=== PATIENT | male | born 1955 | race Caucasian/White ===

== ENCOUNTER → 2021-05-26 13:51 | Outpatient (BNVA) | payer MEDICARE, MEDICAID, SELFPAY | PROVIDERS: PCP Internal Medicine; Visit Provider Psychiatry & Neurology Neurology | DX: G95.9 Disease of spinal cord, unspecified (principal); G25.5 Other chorea; R26.9 Unspecified abnormalities of gait and mobility | CPT/HCPCS: 99212 ==

== ENCOUNTER → 2021-10-30 11:32 | Outpatient (BNVA) | payer MEDICARE, MEDICAID, SELFPAY | PROVIDERS: PCP Internal Medicine; Visit Provider Nurse Practitioner Family | DX: R26.9 Unspecified abnormalities of gait and mobility (principal); G95.9 Disease of spinal cord, unspecified; G25.5 Other chorea; M19.90 Unspecified osteoarthritis, unspecified site; Z91.81 History of falling | CPT/HCPCS: 99212 ==

== ENCOUNTER → 2022-02-26 14:28 | Outpatient (BNVA) | payer MEDICARE, MEDICAID, SELFPAY | PROVIDERS: PCP Internal Medicine; Visit Provider Nurse Practitioner Family | DX: R26.9 Unspecified abnormalities of gait and mobility (principal); R25.1 Tremor, unspecified; I10 Essential (primary) hypertension; F41.8 Other specified anxiety disorders; Z91.81 History of falling | CPT/HCPCS: 99212 ==

== ENCOUNTER → 2022-07-01 14:23 | Outpatient (BNVA) | payer MEDICARE, MEDICAID, SELFPAY | PROVIDERS: PCP Internal Medicine; Visit Provider Nurse Practitioner Family | DX: G20 Parkinson's disease (principal); R26.9 Unspecified abnormalities of gait and mobility; G25.5 Other chorea; Z91.81 History of falling | CPT/HCPCS: 99212 ==

== ENCOUNTER 2022-11-03 13:35 | Outpatient (AMB) | payer MEDICARE, MEDICAID, SELFPAY ==
--- NOTE | 2022-11-03 13:54 | A.OFFVIS_ITS ---
Intake Vital Signs 11/03/22 13:59 Height 6 in BP 136/98 H Blood Pressure Location Rt brachial Position Sitting Pulse 96 Pulse Source Pulse Oximeter Pulse Oximetry (%) 98 Oxygen Delivery Method Room Air Intake Visit Reasons: 4m follow up Parkinson's - Confirmed Intake Note: Patient presents for 4 month follow up parkinson's. Patient states No issues to report today. Allergies sulfamethoxazole [From Bactrim] Adverse Reaction (Intermediate, Verified 11/03/22 14:02) Rash trimethoprim [From Bactrim] Adverse Reaction (Intermediate, Verified 11/03/22 14:02) Rash diazepam [From Valium] Adverse Reaction (Mild, Verified 11/03/22 14:02) Anxiety Medication List - Last Reconciled 11/03/22 by PHIL Bernard albuterol 90 mcg/actuation 90 mcg inhalation .q6hrs aspirin (Adult Low Dose Aspirin) 81 mg PO DAILY benztropine 0.5 mg PO DAILY cyclobenzaprine 10 mg PO BEDTIME lisinopril (Zestril) 10 mg PO BID lorazepam 0.5 - 1 mg PO PRN methylphenidate HCl 10 mg PO BID metoprolol succinate ER (Toprol XL) 25 mg PO DAILY metoprolol succinate ER mg PO mirtazapine 30 mg PO DAILY omeprazole 40 mg PO BID sertraline 100 mg PO DAILY simvastatin (Zocor) 20 mg PO BEDTIME tamsulosin 0.4 mg PO BEDTIME venlafaxine ER 0 mg PO HPI HPI Comments History of Present Illness Details 67-yr-old male presents for f/u visit. Pt denies any significant interval medical history changes. Pt reports his nurse charge rn started him on Benztropine a few weeks agp. He feels it has helped his tremor and jerking movements some. Pt's primary concerns are: His balance is more off ADL's: Ind Swallowing: Sometimes has a bit of difficulty Drooling: Rarely Orthostatic lightheadedness: Transient Constipation: Yes- manages w/ stool softener and prn miralax- tries to eat fruits and vegetables. Freezing: Denies Stiffness: Once in awhile Tremor: Off and on Falls: No falls Hallucinations: Maybe sees a shadow out of the corner of his eye Memory: Can you have some brief STM lapses. 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 [facility], [facility] Medical History ADD (attention deficit disorder) Arthritis Cervical myelopathy Chorea Depression HTN (hypertension) Kidney disease Social anxiety disorder Surgical History History of back surgery Family History Father HTN (hypertension) Mother Cancer Social History Alcohol intake: never Patient Tobacco Use Status: Never used Tobacco Review of Systems Const All systems reviewed & are unremarkable except as noted in HPI and below Physical Exam Vital Signs: Last Vital Signs Pulse 96 11/03/22 13:59 BP 136/98 H 11/03/22 13:59 Pulse Ox 98 11/03/22 13:59 Oxygen Delivery Method Room Air 11/03/22 13:59 Const General: cooperative and no acute distress Resp Effort & Inspection: normal respiratory effort and able to speak in complete sentences Neuro Other: Expression: Decreased- mildly Voice: Ok Tremor: Mild BUE kinetic tremor, no chorea noted today Tone: Mild LUE tone Dyskinesia: None FFM: Bradykinesia- mild- more so on left Foot taps: Bradykinesia- mild- more so on left Gait: Stands ok, short steps, mildy antalgic gait, steady Psych: Pleasant affect. General: patient oriented x3 Assessment & Plan Assessment & Plan (1) Parkinson's disease: Comment: DaTscan: positive for a progressive neurodegenerative d/o. Mild decreased uptake in the left caudate nucleus and bilateral putamen, left worse than right. 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 Will forward my note to Fani at [facility], as pt is unsure if he informed her about his PD dx. Pt advised to start PD BIG program. f/u in 6 months or sooner prn. Orders: Orders PT Evaluation and Treatment Today G20 - Parkinson's disease, G25.5 - Other chorea, R26.9 - Unspecified abnormalities of gait and mobility, W19.XXXA - Unspecified fall, initial encounter Medications: New quetiapine 200 mg PO BEDTIME Coding Level of Care Code Est Pt Level 4 (20521) Diagnoses Parkinson's disease G20 Gait abnormality R26.9 Chorea G25.5
[2022-11-03 13:59] VITALS: BP 136/98; PULSE 96; O2SAT 98
== END 2022-11-03 14:42 | disposition home or self-care (01) ==
PROVIDERS: Visit Provider Nurse Practitioner Family
DX: G20 Parkinson's disease (principal); R26.9 Unspecified abnormalities of gait and mobility; G25.5 Other chorea
CPT/HCPCS: 99214

== ENCOUNTER → 2022-11-03 13:35 | Outpatient (BNVA) | payer MEDICARE, MEDICAID, SELFPAY | PROVIDERS: Visit Provider Nurse Practitioner Family | DX: G20 Parkinson's disease (principal); G25.5 Other chorea; Z79.899 Other long term (current) drug therapy | CPT/HCPCS: 99212 ==

== ENCOUNTER 2023-05-10 11:23 | Outpatient (AMB) | payer MEDICARE, MEDICAID, SELFPAY ==
[2023-05-10 11:28] VITALS: BP 140/88; BMI 23.2
--- NOTE | 2023-05-10 11:28 | MHC.OFFVIS ---
Intake Vital Signs 05/10/23 11:28 Height 5 ft 6 in Weight 144 lb BMI 23.2 BP 140/88 H Blood Pressure Location Rt brachial Position Sitting Intake Visit Reasons: 6m follow up Parkinson's - confirmed Intake Note: patient presents for 6 month follow up. Isabel been the same since I last saw her. Allergies sulfamethoxazole [From Bactrim] Adverse Reaction (Intermediate, Verified 05/10/23 11:32) Rash trimethoprim [From Bactrim] Adverse Reaction (Intermediate, Verified 05/10/23 11:32) Rash diazepam [From Valium] Adverse Reaction (Mild, Verified 05/10/23 11:32) Anxiety Medication List - Last Reconciled 05/10/23 by PHIL Bernard albuterol 90 mcg/actuation 90 mcg inhalation .q6hrs aspirin (Adult Low Dose Aspirin) 81 mg PO DAILY benztropine 0.5 mg PO DAILY cyclobenzaprine 10 mg PO BEDTIME lisinopril (Zestril) 10 mg PO BID lorazepam 0.5 - 1 mg PO PRN methylphenidate HCl 10 mg PO BID metoprolol succinate ER (Toprol XL) 25 mg PO DAILY metoprolol succinate ER mg PO mirtazapine 30 mg PO DAILY omeprazole 40 mg PO BID quetiapine 200 mg PO BEDTIME quetiapine 50 mg PO BEDTIME sertraline 100 mg PO DAILY simvastatin (Zocor) 20 mg PO BEDTIME tamsulosin 0.4 mg PO BEDTIME valbenazine (Ingrezza) 40 mg PO DAILY venlafaxine ER 0 mg PO HPI HPI Comments History of Present Illness Details 68-yr-old male presents for f/u visit. Pt denies any significant interval medical history changes. Pt's current PD medication regimen: None. His benzotropine was changed to Ingrezza by psych. Pt's primary concerns are: He would like to revisit his SHANIKA dx- states had a CPAP machine yrs ago, but it broke about 10 yrs ago. He endorses snoring, fatigue- no naps but is on methylphenidate, and apneas. ADL's: Ind Swallowing: Sometimes has a bit of difficulty Drooling: Rarely Orthostatic lightheadedness: Transient Constipation: Yes- manages w/ stool softener and prn miralax- tries to eat fruits and vegetables. Freezing: Denies Stiffness: Noticing stiffness Tremor: A bit better Dyskinesia/chorea: Denies Falls: No interval falls Hallucinations: Very rarely- may see a shadow out of the corner of his eye Mood: alright , can be anxious Memory: Can you have some brief STM lapses. 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 [facility] Medical History ADD (attention deficit disorder) Arthritis Cervical myelopathy Chorea Depression HTN (hypertension) Kidney disease Social anxiety disorder Surgical History History of back surgery Family History Father HTN (hypertension) Mother Cancer Social History Alcohol intake: never Patient Tobacco Use Status: Never used Tobacco Review of Systems Const All systems reviewed & are unremarkable except as noted in HPI and below Physical Exam Vital Signs: Last Vital Signs BP 140/88 H 05/10/23 11:28 BMI result Body Mass Index 23.2 Const General: cooperative and no acute distress Resp Effort & Inspection: normal respiratory effort and able to speak in complete sentences Neuro Other: General: patient oriented x3 Expression: Decreased Voice: Ok Tremor: Mild BUE kinetic tremor, no chorea noted today Tone: Mild LUE tone Dyskinesia: None FFM: Bradykinesia- more so on left Foot taps: Bradykinesia- more so on left Gait: Stands ok, decreased arm swing, short steps, mildly antalgic gait, steady Psych: Pleasant affect. Assessment & Plan Assessment & Plan (1) Snoring: Code(s): R06.83 - Snoring (2) Witnessed apneic spells: Code(s): R06.81 - Apnea, not elsewhere classified (3) Fatigue: Code(s): R53.83 - Other fatigue (4) Parkinson's disease: Comment: DaTscan: positive for a progressive neurodegenerative d/o. Mild decreased uptake in the left caudate nucleus and bilateral putamen, left worse than right. Code(s): G20 - Parkinson's disease (5) History of obstructive sleep apnea: Code(s): Z86.69 - Personal history of other diseases of the nervous system and sense organs Plan Pt advsied to undergo in-lab PSG to assess status of sleep apnea. Pt would like to try dopaminergic tx to help w/ stiffness. Trial CD-LD 25-100mg 1 tab bid. Monitor Ingrezza effect- as this may exacerbate PD s/s. Will refer pt again to PD BIG program. f/u in 3-4 months or sooner prn. Orders: Orders RT PSG in-lab sleep study Today G20 - Parkinson's disease, R06.81 - Apnea, not elsewhere classified, R06.83 - Snoring, R53.83 - Other fatigue, Z86.69 - Personal history of other diseases of the nervous system and sense organs Medications: New carbidopa-levodopa 25-100 mg take w/ a cracker 30 minutes before breakfast and dinner, 1 tab PO BID 30 days 60 tabs 3RF valbenazine (Ingrezza) 80 mg PO DAILY Coding Level of Care Code Est Pt Level 4 (62321) Diagnoses Snoring R06.83 Witnessed apneic spells R06.81 Fatigue R53.83 Parkinson's disease G20 History of obstructive sleep apnea Z86.69
== END 2023-05-10 12:28 | disposition home or self-care (01) ==
PROVIDERS: PCP Internal Medicine; Visit Provider Nurse Practitioner Family
DX: G20.A1 Parkinson's disease without dyskinesia, without mention of fluctuations (principal); R06.83 Snoring; R06.81 Apnea, not elsewhere classified; R53.83 Other fatigue; Z86.69 Personal history of other diseases of the nervous system and sense organs
CPT/HCPCS: 99214

== ENCOUNTER → 2023-05-10 11:23 | Outpatient (BNVA) | payer MEDICARE, MEDICAID, SELFPAY | PROVIDERS: PCP Internal Medicine; Visit Provider Nurse Practitioner Family | DX: G20.A1 Parkinson's disease without dyskinesia, without mention of fluctuations (principal); R06.83 Snoring; R06.81 Apnea, not elsewhere classified; R53.83 Other fatigue; Z86.69 Personal history of other diseases of the nervous system and sense organs | CPT/HCPCS: 99212 ==

== ENCOUNTER 2023-11-17 08:29 | Outpatient (AMB) | payer MEDICARE, MEDICAID, SELFPAY ==
[2023-11-17 08:41] VITALS: BP 146/84; PULSE 84; O2SAT 98; BMI 22.9
--- NOTE | 2023-11-17 08:41 | A.OFFVIS_ITS ---
Vital Signs 11/17/23 08:41 Height 5 ft 6 in Weight 142 lb BMI 22.9 BP 146/84 H Blood Pressure Location Rt brachial Position Sitting Pulse 84 Pulse Source Pulse Oximeter Pulse Oximetry (%) 98 Oxygen Delivery Method Room Air Intake Visit Reasons: 6m follow up Parkinson's Intake Note: Patient presents for 6 month follow up parkinsons Allergies sulfamethoxazole [From Bactrim] Adverse Reaction (Intermediate, Verified 05/10/23 11:32) Rash trimethoprim [From Bactrim] Adverse Reaction (Intermediate, Verified 05/10/23 11:32) Rash diazepam [From Valium] Adverse Reaction (Mild, Verified 05/10/23 11:32) Anxiety Medication List - Last Reconciled 11/17/23 by PHIL Bernard albuterol 90 mcg/actuation 90 mcg inhalation .q6hrs aspirin (Adult Low Dose Aspirin) 81 mg PO DAILY benztropine 0.5 mg PO DAILY carbidopa-levodopa 25-100 mg 1 tab PO BID 30 days cyclobenzaprine 10 mg PO BEDTIME lisinopril (Zestril) 10 mg PO BID lorazepam 0.5 - 1 mg PO PRN methylphenidate HCl 10 mg PO BID metoprolol succinate ER (Toprol XL) 25 mg PO DAILY metoprolol succinate ER mg PO mirtazapine 30 mg PO DAILY omeprazole 40 mg PO BID quetiapine 200 mg PO BEDTIME quetiapine 50 mg PO BEDTIME sertraline 100 mg PO DAILY simvastatin (Zocor) 20 mg PO BEDTIME tamsulosin 0.4 mg PO BEDTIME valbenazine (Ingrezza) 80 mg PO DAILY venlafaxine ER 0 mg PO HPI Comments Details: 68-yr-old male presents for f/u visit. Pt denies any significant interval medical history changes. Pt's current PD medication regimen: CD-LD 25-100mg 1 tab bid. The Ingrezza was stopped as it was not helping his tremor. His sleep study is scheduled for 11/27/23- to re-assess SHANIKA dx- states had a CPAP machine yrs ago, but it broke about 10 yrs ago. He endorses snoring, fatigue- no naps but is on methylphenidate, and apneas. ADL's: Ind. Lives w/ his in an apartment complex. Swallowing: Sometimes has a bit of difficulty Drooling: Rarely Orthostatic lightheadedness: Transient Constipation: Yes- manages w/ stool softener and prn miralax- tries to eat fruits and vegetables. Urinary symptoms: denies Freezing: Denies Stiffness: Stiffness- stable. Tremor: Stable. Dyskinesia/chorea: Denies Falls: No interval falls Hallucinations: Very rarely- may see a shadow out of the corner of his eye Mood: ok Memory: Can you have some brief STM lapses- as good a sit's going to be . Sleep: Sleeps on and off- nocturia. Exercise: He is exercising- goes to the gym once in a while. He is no longer working. [facility] Medical History (Updated 11/17/23 @ 09:33 by PHIL Bernard) Parkinson's disease Cervical myelopathy Chorea Social anxiety disorder ADD (attention deficit disorder) Kidney disease HTN (hypertension) Depression Arthritis Surgical History History of back surgery Family History Father HTN (hypertension) Mother Cancer Social History Alcohol intake: never Patient Tobacco Use Status: Never used Tobacco Review of Systems Const All systems reviewed & are unremarkable except as noted in HPI and below Physical Exam Vital Signs: BMI result Body Mass Index 22.9 Const General: cooperative and no acute distress Resp Effort & Inspection: normal respiratory effort and able to speak in complete sentences Neuro Other: General: patient oriented x3. Facial asymmetry- have not previously appreciated. Expression: Decreased. Voice: Ok Tremor: Mild BUE kinetic tremor, no chorea noted today. Prone to tapping RLE. Tone: Mild BUE tone, L > R Dyskinesia: None FFM: Bradykinesia- more so on left Foot taps: Bradykinesia- more so on left Gait: Stands ok, decreased arm swing, short steps, knees bent, short steps w/ low floor clearance, steady Psych: Pleasant affect. General: deep tendon reflexes 2+ bilaterally Motor exam (neuro): 5/5 motor strength present throughout Assessment & Plan Assessment & Plan (1) Parkinson's disease without dyskinesia: Comment: DaTscan: positive for a progressive neurodegenerative d/o. Mild decreased uptake in the left caudate nucleus and bilateral putamen, left worse than right. Code(s): G20.A1 - Parkinson's disease without dyskinesia, without mention of fluctuations Category: Medical (2) History of obstructive sleep apnea: Code(s): Z86.69 - Personal history of other diseases of the nervous system and sense organs Category: Medical (3) Gait abnormality: Code(s): R26.9 - Unspecified abnormalities of gait and mobility Category: Medical Plan Pt advised to undergo brain MRI wo to assess for secondary etiologies of facial asymmetry. In-lab PSG to assess status of sleep apnea- as scheduled. Continue CD-LD 25-100mg 1 tab bid. Pt has stopped Ingrezza- ineffective. Pt to bring in updated med list at f/u. Discussed importance of regular physical activity for management of PD s/s, Will refer to out-pt PT for gait training etc. Order slip given for [facility].BIG program. f/u in 6 months or sooner prn. Orders: Orders MR head/brain wo con Today G20.A1 - Parkinson's disease without dyskinesia, without mention of fluctuations, Q67.0 - Congenital facial asymmetry, R25.1 - Tremor, unspecified, R26.9 - Unspecified abnormalities of gait and mobility Coding Level of Care Code Est Pt Level 4 (12451) Diagnoses Parkinson's disease without dyskinesia G20.A1 History of obstructive sleep apnea Z86.69 Gait abnormality R26.9
== END 2023-11-17 09:31 | disposition home or self-care (01) ==
PROVIDERS: PCP Internal Medicine; Visit Provider Nurse Practitioner Family
DX: G20.A1 Parkinson's disease without dyskinesia, without mention of fluctuations (principal); Z86.69 Personal history of other diseases of the nervous system and sense organs; R26.9 Unspecified abnormalities of gait and mobility
CPT/HCPCS: 99214

== ENCOUNTER → 2023-11-17 08:29 | Outpatient (BNVA) | payer MEDICARE, MEDICAID, SELFPAY | PROVIDERS: PCP Internal Medicine; Visit Provider Nurse Practitioner Family | DX: G20.A1 Parkinson's disease without dyskinesia, without mention of fluctuations (principal); G47.33 Obstructive sleep apnea (adult) (pediatric); Q67.0 Congenital facial asymmetry; R26.9 Unspecified abnormalities of gait and mobility; Z99.89 Dependence on other enabling machines and devices; Z86.69 Personal history of other diseases of the nervous system and sense organs | CPT/HCPCS: 99212 ==

== ENCOUNTER 2024-01-08 11:15 | Outpatient (REF) | payer MEDICARE, MEDICAID, SELFPAY ==
--- NOTE | ~2024-01-08 | MR_ITS ---
EXAMINATION: MR BRAIN WITHOUT CONTRAST CLINICAL INFORMATION: Congenital facial asymmetry. COMPARISON: None available. TECHNIQUE: MRI of the brain was obtained using routine sequences without contrast. FINDINGS: No focal restricted diffusion is demonstrated to suggest acute or subacute cerebral ischemia. No evidence of acute or chronic hemorrhagic products on heme-sensitive imaging. Scattered and partially confluent periventricular, deep white matter, and brainstem T2 FLAIR hyperintensities consistent with mild to moderate underlying microangiopathy. Proportional prominence of the ventricles and sulcal spaces without evidence of obstructive hydrocephalus. No abnormal mass effect. No midline shift. Normal appearance of the pituitary gland. Normal positioning of the cerebellar tonsils. Normal arterial and venous vascular flow voids are present. Normal, homogeneous marrow signal. Moderate degenerative spondyloarthropathy of the visualized upper cervical spine. Mild mucosal thickening of the paranasal sinuses. No signal abnormalities within the mastoids. MR/MR head/brain wo con IMPRESSION: 1. No acute intracranial abnormalities. 2. Mild to moderate underlying microangiopathy and generalized cerebral volume loss. Electronically signed by: Bimal Gusman DO 02/16/2024 05:58 AM SAULO
== END 2024-01-08 11:16 | disposition home or self-care (01) ==
LOC: HO.MRI 11:15
PROVIDERS: PCP Internal Medicine; Visit Provider Nurse Practitioner Family
DX: Q67.0 Congenital facial asymmetry (principal); R26.9 Unspecified abnormalities of gait and mobility; G20.A1 Parkinson's disease without dyskinesia, without mention of fluctuations
CPT/HCPCS: 70551

== ENCOUNTER 2024-05-29 09:01 | Outpatient (AMB) | payer MEDICARE, MEDICAID, SELFPAY ==
--- NOTE | 2024-05-29 09:01 | MHC.OFFVIS ---
Vital Signs 05/29/24 09:03 Height 5 ft 6 in Weight 141 lb BMI 22.8 BP 130/80 Blood Pressure Location Rt brachial Position Sitting Pulse 83 Pulse Source Pulse Oximeter Pulse Oximetry (%) 98 Oxygen Delivery Method Room Air Intake Visit Reasons: Follow up Intake Note: Patient presents follow up Parkinson's. MRI in chart [employer] Required: No Accompanied by: Self / Same As Patient Allergies sulfamethoxazole [From Bactrim] Adverse Reaction (Intermediate, Verified 05/29/24 09:02) Rash trimethoprim [From Bactrim] Adverse Reaction (Intermediate, Verified 05/29/24 09:02) Rash diazepam [From Valium] Adverse Reaction (Mild, Verified 05/29/24 09:02) Anxiety Medication List - Last Reconciled 05/29/24 by PHIL Bernard albuterol 90 mcg/actuation 90 mcg inhalation .q6hrs aspirin (Adult Low Dose Aspirin) 81 mg PO DAILY benztropine 0.5 mg PO DAILY carbidopa-levodopa 25-100 mg 1 tab PO BID 30 days cyclobenzaprine 10 mg PO BEDTIME lisinopril (Zestril) 10 mg PO BID lorazepam 0.5 - 1 mg PO PRN methylphenidate HCl 10 mg PO BID metoprolol succinate ER (Toprol XL) 25 mg PO DAILY metoprolol succinate ER mg PO mirtazapine 30 mg PO DAILY omeprazole 40 mg PO BID quetiapine 200 mg PO BEDTIME quetiapine 50 mg PO BEDTIME sertraline 100 mg PO DAILY simvastatin (Zocor) 20 mg PO BEDTIME tamsulosin 0.4 mg PO BEDTIME venlafaxine ER 0 mg PO HPI Comments Details: 68-yr-old male presents for f/u visit. Pt denies any significant interval medical history changes. 01/08/24, Brain MRI without contrast showed: 1. No acute intracranial abnormalities. 2. Mild to moderate underlying microangiopathy and generalized cerebral volume loss. He did not complete the in-lab PSG as he was sick- previously ordered to re-assess SHANIKA dx- states had a CPAP machine yrs ago, but it broke about 10 yrs ago. He endorses snoring, apneas, fatigue- no naps but is on methylphenidate Pt's current PD medication regimen: CD-LD 25-100mg 1 tab bid. Does not notice it wearing your consult ADL's: Ind. Lives w/ his in an apartment complex. Swallowing: Sometimes has a bit of difficulty with larger bites Drooling: Rarely Orthostatic lightheadedness: Transient- very mild Constipation: Yes- manages w/ stool softener and prn miralax- tries to eat fruits and vegetables. Urinary symptoms: States stream may be slow- has prostate s/s f/b urology. Freezing: Denies Stiffness: Very little Tremor: Very little Dyskinesia/chorea: Denies Gait/Falls: No interval falls- but may skuff his foot or lose his balance at times- which is bothersome to him and his .. Hallucinations: Denies. Previously: Very rarely- may see a shadow out of the corner of his eye Mood: ok Memory: Can you have some brief STM lapses- sometimes. Asks if this is r/t PD. Sleep: Sleeps on and off at times. Exercise: He did complete PT. He is exercising at times- goes to the gym once in a while. He is no longer working. [facility] Medical History (Updated 11/17/23 @ 09:33 by PHIL Bernard) Parkinson's disease Cervical myelopathy Chorea Social anxiety disorder ADD (attention deficit disorder) Kidney disease HTN (hypertension) Depression Arthritis Surgical History History of back surgery Family History Father HTN (hypertension) Mother Cancer Social History Alcohol intake: never Patient Tobacco Use Status: Never used Tobacco Physical Exam Vital Signs: Last Vital Signs Pulse 83 05/29/24 09:03 BP 130/80 05/29/24 09:03 Pulse Ox 98 05/29/24 09:03 Oxygen Delivery Method Room Air 05/29/24 09:03 BMI result Body Mass Index 22.8 Const General: cooperative and no acute distress Resp Effort & Inspection: normal respiratory effort and able to speak in complete sentences Neuro Other: General: patient oriented x3. Facial asymmetry. Expression: Decreased expression and blink Voice: Ok Tremor: Mild BUE kinetic tremor, no chorea noted today. Did not observe any RLE tapping. Tone: Mild BUE tone, L > R Dyskinesia: None FFM: Bradykinesia- more so on left Foot taps: Bradykinesia- more so on left Gait: Stands ok, decreased arm swing knees bent, shorter steps in narrow left leg is stopping across the floor, though overall steady Psych: Pleasant affect. Assessment & Plan Assessment & Plan (1) Parkinson's disease without dyskinesia: Comment: DaTscan: positive for a progressive neurodegenerative d/o. Mild decreased uptake in the left caudate nucleus and bilateral putamen, left worse than right. Code(s): G20.A1 - Parkinson's disease without dyskinesia, without mention of fluctuations Category: Medical (2) History of obstructive sleep apnea: Code(s): Z86.69 - Personal history of other diseases of the nervous system and sense organs Category: Medical (3) Gait abnormality: Code(s): R26.9 - Unspecified abnormalities of gait and mobility Category: Medical Plan Reviewed brain MRI wo- Mild to moderate underlying microangiopathy and generalized cerebral volume loss. BP normotensive today. Reviewed recent labs through PCP/Leah panel: Lipid panel WNL. Patient encouraged to continue to work with his care team to maintain an optimal blood pressure, cholesterol and glucose control. Patient reports nephrology has asked him to hold low-dose aspirin. Patient encouraged to increase regular physical activity, can engage in regular social in cognitive stimulating activities. Pt again advised to undergo In-lab PSG to assess status of sleep apnea. Increase CD-LD 25-100mg from 1 tab BID to 1 tab TID- in hopes this in full use gait imbalance. Previous tx's- Ingrezza- ineffective. Cogentin- ineffective. f/u in 6 months or sooner prn. Orders: Orders RT PSG in-lab sleep study Today G20.A1 - Parkinson's disease without dyskinesia, without mention of fluctuations, R06.81 - Apnea, not elsewhere classified, R06.83 - Snoring, R53.83 - Other fatigue, Z86.69 - Personal history of other diseases of the nervous system and sense organs Medications: New sertraline (Zoloft) 100 mg PO DAILY amlodipine 5 mg PO DAILY prazosin 1 mg PO BEDTIME Changed From quetiapine 200 mg PO BEDTIME To quetiapine 350 mg PO BEDTIME From carbidopa-levodopa 25-100 mg take w/ a cracker 30 minutes before breakfast and dinner, 1 tab PO BID 30 days 60 tabs 6RF To carbidopa-levodopa 25-100 mg take w/ a cracker 30 minutes before breakfast, lunch, and dinner, 1 tab PO TID 30 days 90 tabs 6RF From aspirin (Adult Low Dose Aspirin) 81 mg PO DAILY To aspirin (Adult Low Dose Aspirin) Patient states this is on hold per nephrology 81 mg PO DAILY Coding Level of Care Code Est Pt Level 4 (28363) Diagnoses Parkinson's disease without dyskinesia G20.A1 History of obstructive sleep apnea Z86.69 Gait abnormality R26.9
[2024-05-29 09:03] VITALS: BP 130/80; PULSE 83; O2SAT 98; BMI 22.8
== END 2024-05-29 10:03 | disposition home or self-care (01) ==
LOC: HO.HSMS 09:02
PROVIDERS: PCP Internal Medicine; Visit Provider Nurse Practitioner Family
DX: G20.A1 Parkinson's disease without dyskinesia, without mention of fluctuations (principal); Z86.69 Personal history of other diseases of the nervous system and sense organs; R26.9 Unspecified abnormalities of gait and mobility
CPT/HCPCS: 99214

== ENCOUNTER → 2024-05-29 09:01 | Outpatient (BNVA) | payer MEDICARE, MEDICAID, SELFPAY | PROVIDERS: PCP Internal Medicine; Visit Provider Nurse Practitioner Family | DX: G20.A1 Parkinson's disease without dyskinesia, without mention of fluctuations (principal); G47.33 Obstructive sleep apnea (adult) (pediatric); R26.9 Unspecified abnormalities of gait and mobility; R06.83 Snoring; Z86.69 Personal history of other diseases of the nervous system and sense organs | CPT/HCPCS: 99212 ==

== ENCOUNTER 2024-11-29 12:53 | Outpatient (AMB) | payer MEDICARE, MEDICAID, SELFPAY ==
--- NOTE | 2024-11-29 13:06 | A.OFFVIS_ITS ---
Vital Signs 11/29/24 13:09 Height 5 ft 6 in Weight 146 lb BMI 23.6 BP 110/80 Blood Pressure Location Lt brachial Position Sitting Pulse 86 Pulse Source Pulse Oximeter Pulse Oximetry (%) 98 Oxygen Delivery Method Room Air Intake Visit Reasons: 6 mo f/u Intake Note: Patient presents follow up Parkinson's. 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 Accompanied by: Self / Same As Patient Allergies sulfamethoxazole (From Bactrim) Adverse Reaction (Intermediate, Verified 11/29/24 13:09) Rash trimethoprim (From Bactrim) Adverse Reaction (Intermediate, Verified 11/29/24 13:09) Rash diazepam (From Valium) Adverse Reaction (Mild, Verified 11/29/24 13:09) Anxiety Medication List - Last Reconciled 11/29/24 by PHIL Bernard albuterol 90 mcg/actuation 90 mcg inhalation .q6hrs amlodipine 5 mg PO DAILY aspirin (Adult Low Dose Aspirin) 81 mg PO DAILY carbidopa-levodopa 25-100 mg 1 tab PO TID 30 days cyclobenzaprine 10 mg PO BEDTIME lisinopril (Zestril) 10 mg PO BID lorazepam 0.5 - 1 mg PO PRN methylphenidate HCl 10 mg PO BID metoprolol succinate ER (Toprol XL) 25 mg PO DAILY metoprolol succinate ER mg PO omeprazole 40 mg PO BID prazosin 1 mg PO BEDTIME quetiapine 350 mg PO BEDTIME sertraline 100 mg PO DAILY simvastatin (Zocor) 20 mg PO BEDTIME tamsulosin 0.4 mg PO BEDTIME HPI Comments Details: 69-yr-old male presents for f/u visit, Parkisnon's and chorea. Pt denies any significant interval medical history changes. His primary concerns today is noticing increased STM lapses, such as forgetting who an actor is or forgetting what he just watched. He may be multitasking or thinking over other things. He has not yet had repeat sleep study. Pt's current PD medication regimen: CD-LD 25-100mg 1 tab bid. Does notice CD-LD wearing off before next dose. ADL's: Ind. Lives w/ his in an apartment complex. Swallowing: Sometimes has difficulty swallowing solid foods. Also endorses GERD. Drooling: Rarely Orthostatic lightheadedness: Transient- very mild Constipation: Yes- manages w/ stool softener and prn miralax- tries to eat fruits and vegetables. Urinary symptoms: States stream may be slow- stopped tamsulosin d/t caused low BP/OH s/s, has h/o BPH s/s f/b urology. Gait: May skuff his foot or lose his balance at times- Freezing: Denies Stiffness: Very little Tremor: once in a while Dyskinesia/chorea: Denies Gait/Falls: Denies interval falls Hallucinations: Denies. Previously: Very rarely- may see a shadow out of the corner of his eye Mood: depression and anxiety, f/b psychiatrist at [facility] Memory: as above Sleep: Sleeps ok on and off at times. Can be tired during the day. He endorses snoring, apneas, fatigue- no naps but is on methylphenidate Exercise: He previously completed PT. He is exercising at times- goes to the gym once in a while. Previous work-up: 01/08/24, Brain MRI without contrast showed: 1. No acute intracranial abnormalities. 2. Mild to moderate underlying microangiopathy and generalized cerebral volume loss. [facility] Medical History (Updated 11/29/24 @ 14:03 by PHIL Bernard) Parkinson's disease Cervical myelopathy Chorea Social anxiety disorder ADD (attention deficit disorder) Kidney disease HTN (hypertension) Depression Arthritis Surgical History History of back surgery Family History Father HTN (hypertension) Mother Cancer Social History Alcohol intake: never Patient Tobacco Use Status: Never used Tobacco Physical Exam Vital Signs: Last Vital Signs Pulse 86 11/29/24 13:09 BP 110/80 11/29/24 13:09 Pulse Ox 98 11/29/24 13:09 Oxygen Delivery Method Room Air 11/29/24 13:09 BMI result Body Mass Index 23.6 Const General: cooperative and no acute distress Resp Effort & Inspection: normal respiratory effort and able to speak in complete sentences Neuro Other: General: patient oriented x3. Facial asymmetry. Mild bradyphrenia. Expression: Decreased expression and blink Voice: Ok Tremor: Mild BUE kinetic tremor, no chorea noted today. Mild RLE tapping. Tone: Mild BUE tone, L > R Dyskinesia: None FFM: Bradykinesia- more so on left Foot taps: Bradykinesia- more so on left Gait: Stands ok, decreased arm swing, knees bent, shorter steps though overall steady Psych: Pleasant affect. Assessment & Plan Assessment & Plan (1) Parkinson's disease without dyskinesia: Comment: DaTscan: positive for a progressive neurodegenerative d/o. Mild decreased uptake in the left caudate nucleus and bilateral putamen, left worse than right. Code(s): G20.A1 - Parkinson's disease without dyskinesia, without mention of fluctuations Category: Medical Qualifiers: Fluctuating manifestations: with fluctuating manifestations Qualified Code(s): G20.A2 - Parkinson's disease without dyskinesia, with fluctuations (2) History of obstructive sleep apnea: Code(s): Z86.69 - Personal history of other diseases of the nervous system and sense organs Category: Medical (3) Gait abnormality: Code(s): R26.9 - Unspecified abnormalities of gait and mobility Category: Medical (4) Short-term memory loss: Code(s): R41.3 - Other amnesia Category: Medical (5) Swallowing difficulty: Code(s): R13.10 - Dysphagia, unspecified Category: Medical Qualifiers: Dysphagia type: unspecified Qualified Code(s): R13.10 - Dysphagia, unspecified Plan Patient encouraged to continue to work with his care team to maintain an optimal blood pressure, cholesterol and glucose control. Patient reports nephrology has asked him to hold low-dose aspirin. Patient encouraged to increase regular physical activity, can engage in regular social in cognitive stimulating activities. Pt again advised to undergo: * In-lab PSG to assess status of sleep apnea. 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 in hopes this reduces bradyphrenia, bradykinesia. Previous tx's- Ingrezza- ineffective. Cogentin- ineffective. Will follow-up upon review of above and patient to follow-up in clinic in 6 months or sooner prn. Orders: Orders RT PSG in-lab sleep study Today G20.A1 - Parkinson's disease without dyskinesia, without mention of fluctuations, R06.83 - Snoring, Z86.69 - Personal history of other diseases of the nervous system and sense organs [place] Modified Barium Swallow Today G20.A1 - Parkinson's disease without dyskinesia, without mention of fluctuations, R13.10 - Dysphagia, unspecified Referrals Neuropsychiatry Referral R41.3 - Other amnesia Speech and Hearing Referral G20.A1 - Parkinson's disease without dyskinesia, without mention of fluctuations, R13.10 - Dysphagia, unspecified Medications: Changed From carbidopa-levodopa 25-100 mg take w/ a cracker 30 minutes before breakfast, lunch, and dinner, 1 tab PO TID 30 days 90 tabs 6RF To carbidopa-levodopa 25-100 mg 2 tabs qam, 1 tab q afternoon, 1-2 tabs qhs orally 3 times a day; take w/ a cracker 30 minutes before breakfast, lunch, and dinner, 150 tabs 6RF 30 days Coding Level of Care Code Est Pt Level 4 (27858) Complex EM visit Add On G2211 Diagnoses Parkinson's disease without dyskinesia, with fluctuating manifestations G20.A2 Fluctuating manifestations: with fluctuating manifestations History of obstructive sleep apnea Z86.69 Gait abnormality R26.9 Short-term memory loss R41.3 Dysphagia, unspecified type R13.10 Dysphagia type: unspecified
[2024-11-29 13:09] VITALS: BP 110/80; PULSE 86; O2SAT 98; BMI 23.6
--- OUTSIDE RECORDS SUMMARY | 2024-11-29 15:19 | XMS_ITS | Encounter Summary ---
Author Organization [facility] Address [address] [place] [address] Care Team Providers Care Farm Laborer Name Role Phone Paulie Martinez MD Primary Care Provider [phone] Arelis Gama MD Unavailable [phone] Encounter Details Date Type Department Care Team Description 08/03/2023 Educational Institution Curator Report Medical Records [address] [place] [address] Santa Li MD Social History Tobacco Use Types Packs/Day Years Used Date Smoking Tobacco: Former Cigarettes 0.5 12 0 03/08/1969 - 03/08/1981 Smokeless Tobacco: Never Comments:started at 14 Alcohol Use Standard Drinks/Week Comments Yes 0 (1 standard drink = 0.6 oz pur e alcohol) rare, on holidays Sex Assigned at Date Recorded Not on file Job Start Date Occupation Industry Not on file Not on file Not on file documented as of this encounter Plan of Treatment Not on file documented as of this encounter Visit Diagnoses Not on filedocumented in this encounter Care Teams Farm Laborer Relationship Specialty Start Date End Date Paulie Martinez MD [address] [place] [address] PCP - General Internal Medicine 09/16/17 Arelis Gama MD [address] [facility] [address] [place] [address] Specialist Neurosurgery 03/11/21 documented as of this encounter
--- OUTSIDE RECORDS SUMMARY | 2024-11-29 15:19 | XMS_ITS | Clinical Summary ---
Author Organization [address] Address [address] [place] [phone] Phone Care Team Providers Care Barley Steeper Name Role Phone Paulie Martinez MD Primary Care Provider [phone] Allergies Active Allergy Reactions Criticality Noted Date Comments Propoxyphene Rash 03/15/2024 Diazepam 03/24/2006 anxiety and rage Propoxyphene Hcl 03/24/2006 rash Propoxyphene Hcl 03/15/2024 kdc:propoxyphene+brillia nt Blue [facility] Propoxyphene Napsylate Rash 03/15/2024 Apap-fd&c Blue #1 [facility]-propoxyphene Naps Sulfadiazine Rash 03/30/2023 Sulfadiazine Rash 03/15/2024 Sulfamethoxazole-Trimethopri m 03/24/2006 rash Sulfamethoxazole-Trimethopri m Rash 03/15/2024 Trimethoprim 03/11/2021 Trimethoprim 03/15/2024 Diazepam Anxiety 03/15/2024 anxiety and rage Medications nutritional drink (Ensure Clear) liquid Take 1 Can by mouth. 4 Active prazosin (MINIPRESS) 1 mg capsule Take 1 Capsule by mouth at bedtime. 4 Active carbidopa-levodo pa (SINEMET) 25-100 mg per tablet Take 1 Tablet by mouth 3 times daily. 4 Active omeprazole (PriLOSEC) [address] capsule Take 1 capsule (40 mg total) by mouth 2 (two) times a day. 4 Active albuterol HFA (Ventolin HFA) 90 mcg/actuation inhaler Inhale 2 Puffs into the lungs every 6 hours as needed for Cough, Wheezing or Shortness of Breath. 4 Active aspirin 81 mg EC tablet Take 1 tablet (81 mg total) by mouth 1 (one) time each day. 4 Active acetaminophen (TYLENOL) 325 mg tablet Take 2 Tablets by mouth. 8 Active amoxicillin (AMOXIL) 500 mg tablet Take 1 tablet (500 mg total) by mouth 2 (two) times a day. 4 Active loratadine (CLARITIN) 10 mg tablet 7 Active LORazepam (ATIVAN) 1 mg tablet TAKE 1/2 TO 1 TABLET BY MOUTH UP TO THREE TIMES DAILY NEEDED FOR EXTREME ANXIETY 3 Active lurasidone (LATUDA) 60 mg tablet Take 1 tablet (60 mg total) by mouth 1 (one) time each day. 4 Active methylphenidate (RITALIN) 20 mg tablet Take 1 Tablet by mouth. 7 Active sertraline (ZOLOFT) 100 mg tablet Take 1.5 tablets (150 mg total) by mouth 1 (one) time each day. 3 Active hydrOXYzine HCL (ATARAX) 25 mg tablet TAKE 1 TO 2 TABLETS BY MOUTH AT BEDTIME 2 Active QUEtiapine (SEROquel) 400 mg tablet 300 mg. 2 Active mirtazapine (REMERON) 30 mg tablet Take 30 mg by mouth daily. 2 Active azelastine (ASTELIN) 137 mcg (0.1 %) nasal spray 2 Sprays by Each Nare route 2 times daily. Use in each nostril as directed 1 Active fluticasone propionate (FLONASE) 50 mcg/actuation nasal spray 2 Sprays by Nasal route daily for 30 days. 1 Active ketotifen (ZADITOR) 0.025 % ophthalmic solution Place 1 Drop into both eyes 2 times daily as needed (itch or tear). 1 Active ciclopirox (LOPROX) 0.77 % cream APPLY SPARINGLY TO AFFECTED AREA AFTER SHOWER EVEN IF RASH IS NOT EVIDENT 0 Active simvastatin (ZOCOR) 20 mg tablet TAKE 1 TABLET BY MOUTH AT BEDTIME Active amLODIPine (NORVASC) 5 mg tablet TAKE 1 TABLET BY MOUTH DAILY - Oral Active lactose-reduced food (ENSURE COMPLETE ORAL) Take 1 Can by mouth 2 times daily. AME-99 One can twice a day (2/day) 60 per month with 5 refills - Oral Active prazosin (MINIPRESS) 1 mg capsule Take 1 Capsule by mouth at bedtime. - Oral Active carbidopa-levodo pa (SINEMET) 25-100 mg per tablet Active omeprazole (PriLOSEC) [address] capsule TAKE 1 CAPSULE BY MOUTH TWICE DAILY Active aspirin 81 mg EC tablet Take 1 Tablet by mouth daily. - Oral Active ferrous sulfate 325 mg (65 mg iron) EC tablet Take 1 Tablet by mouth daily. - Oral Active senna-docusate (PERICOLACE) 8.6-50 mg per tablet Take 2 Tablets by mouth daily. - Oral Active acetaminophen (TYLENOL) 325 mg tablet Take 2 Tablets by mouth. - Oral Active amoxicillin (AMOXIL) 500 mg tablet TAKE 1 TABLET BY MOUTH TWICE DAILY Active lisinopriL (PRINIVIL,ZESTRI L) 20 mg tablet Take 1 Tablet by mouth. - Oral Active loratadine (CLARITIN) 10 mg tablet Take 1 Tablet by mouth. - Oral Active LORazepam (ATIVAN) 1 mg tablet TAKE 1/2 TO 1 TABLET BY MOUTH UP TO THREE TIMES DAILY NEEDED FOR EXTREME ANXIETY Active lurasidone (LATUDA) 60 mg tablet Take 1 Tablet by mouth daily. - Oral Active methylphenidate (RITALIN) 20 mg tablet Take 1 Tablet by mouth. - Oral Active sertraline (ZOLOFT) 100 mg tablet TAKE 1 AND 1/2 TABLETS BY MOUTH DAILY Active valbenazine (Ingrezza) 40 mg capsule TAKE 1 CAPSULE BY MOUTH DAILY Active hydrOXYzine HCL (ATARAX) 25 mg tablet TAKE 1 TO 2 TABLETS BY MOUTH AT BEDTIME Active QUEtiapine (SEROquel) 400 mg tablet 300 mg. Active mirtazapine (REMERON) 30 mg tablet Take 30 mg by mouth daily. - Oral Active azelastine (ASTELIN) 137 mcg (0.1 %) nasal spray 2 Sprays by Each Nare route 2 times daily. Use in each nostril as directed - Each Nare Active fluticasone propionate (FLONASE) 50 mcg/actuation nasal spray 2 Sprays by Nasal route daily for 30 days. - Nasal Active ketotifen fumarate (ZADITOR) 0.035 % ophthalmic solution Place 1 Drop into both eyes 2 times daily as needed (itch or tear). - Both Eyes Active ciclopirox (LOPROX) 0.77 % cream APPLY SPARINGLY TO AFFECTED AREA AFTER SHOWER EVEN IF RASH IS NOT EVIDENT Active ferrous sulfate 325 mg (65 mg elemental iron) tablet Take 1 tablet (325 mg total) by mouth 1 (one) time each day. 90 tablet 1 5 Active senna-docusate (PERICOLACE) 8.6-50 mg per tabletIndication s:Constipation, unspecified constipation type Take 2 tablets by mouth 1 (one) time each day. 180 tablet 1 5 Active albuterol HFA (Ventolin HFA) 90 mcg/actuation inhaler Inhale 2 puffs by mouth every 4 (four) hours if needed for wheezing. Inhale 2 Puffs into the lungs every 6 hours as needed for Cough, Wheezing or Shortness of Breath. - Inhalation 8.5 g 3 5 Active amLODIPine (NORVASC) 5 mg tablet TAKE 1 TABLET BY MOUTH DAILY 90 tablet 1 5 Active lisinopriL (PRINIVIL,ZESTRI L) 20 mg tablet Take 1 tablet (20 mg total) by mouth 1 (one) time each day. 90 tablet 1 5 Active simvastatin (ZOCOR) 20 mg tablet Take 1 tablet (20 mg total) by mouth at bedtime. 90 tablet 1 5 Active predniSONE (DELTASONE) 20 mg tablet 3 tabs po x 3 days then 2 tabs po x 3 days, then 1 tab 3 days 18 each 5 5 Active omeprazole (PriLOSEC) [address] capsule Take 1 capsule (40 mg total) by mouth 2 (two) times a day. 180 capsule 1 5 Active amoxicillin-clav ulanate (AUGMENTIN) 875-125 mg per tablet Take 1 tablet by mouth 2 (two) times a day for 10 days. 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, [facility] V28) 2024 GERD (gastroesophageal reflux disease) Dysphagia 03/15/2024 Diverticulosis 03/15/2024 Hepatic steatosis 03/15/2024 Lipoma of abdominal wall 03/15/2024 Renal cyst 03/15/2024 Benign prostatic hyperplasia 03/15/2024 Polyneuropathy 03/15/2024 Chronic neck pain 03/15/2024 Parkinson disease ([facility] V24, [facility] V28) 10/2024 Bipolar affective ([facility] V24, [facility] V28) 10/2024 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 Cervical spondylosis 03/15/2024 Perennial allergic rhinitis 03/15/2024 Allergic conjunctivitis of both eyes 03/15/2024 Positive PPD 03/15/2024 Chest pain 03/15/2024 Recurrent sinus infections 03/15/2024 Abnormality of immune system 03/15/2024 HTN (hypertension) 12/08/2023 Assessment & Plan (06/05/2024 8:31 AM EDT): Orders: Comprehensive metabolic panel; Future Cervical disc displacement 12/08/2023 Parkinson's disease ([facility] V24, [facility] V28) 1 Assessment & Plan (06/05/2024 8:31 AM EDT): Cervical spondylosis 06/06/2021 Overview (12/08/2023): Last Assessment & Plan: Mr. Gonzalez was seen here January 2021 for neck pain and shaking in his arms. He was followed by neurology and ruled out for chorea. He has been to physical therapy for the exercises did not seem to help and there was no benefit from the one occasion they tried manual traction. He describes pain at the cervicothoracic junction and just down into the interscapular area with clicking of his neck with movement and numbness of the fourth and fifth digits bilaterally. When asked further about clumsiness and incoordination, he states he does occasionally drop his phone but he is able to do all buttons and zippers on his close, tie his laces, use utensils and a pen. On exam, he is bright and alert, there is no step-off or deformity the cervical spine. Cervical rotation is 45 degrees bilaterally, strength is 5 out of 5 throughout, sensation to light touch is diminished over the fourth and fifth digits of both hands as well as part of the left thumb. Reflexes are symmetric at 1+, Benita sign is absent, Tinel's test is positive at the elbows right greater than left. I reviewed again his cervical spine MRI from 11/07/2020 at [facility] which shows a solid fusion at C5-6 with degenerative adjacent segment disease at both C4-5 and C3-4. There are broad disc osteophytes with foraminal stenosis and flattening of the ventral thecal sac without arlette cord compression or signal change in the cord. There is moderate foraminal stenosis at C6-7 and no worrisome findings at C7-T1. I discussed this with Mr. Gonzalez and I do not think he is myelopathic. If anything, this may be an ulnar neuropathy. I like to send him for an EMG to evaluate for this versus cervical radiculopathy. Neck pain, chronic 03/11/2021 Overview (12/08/2023): Last Assessment & Plan: Mr. Gonzalez has had 2 weeks of physical therapy including cervical traction. He still reports aching neck pain, poor mobility and some shaking of the arms. This does not seem to be an intention tremor but he states he is occasionally drops things out of his hands when reaching for them. On exam, cervical rotation is 45 degrees bilaterally, strength is 5 out of 5 including handgrip. When holding his arms outstretched, I feel a slight tremor in both arms. Sensation light touch is intact, gait is steady there were no myelopathic findings. We discussed his previous cervical spine MRI showing moderate spondylosis at C3- 4 and C4-5 adjacent to his prior fusion at C5-6. We discussed the option of C3-4, C4-5 ACDF with plating to address neck pain and that this would involve a more significant loss of motion that after his original surgery. In the absence of focal weakness or radicular pain, I recommended he continue PT and give them the feedback to modify their treatment. 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 Santa Li Needs Pneumovax titers, should get his tetanus, diptheria and acellular pertussis as planned Start prophylactic antibiotics- Amoxil 500 mgs BID as evaluation continued 08/14/19 Perennial allergic rhinitis 08/01/2019 Recurrent sinus infections 08/01/2019 Allergic conjunctivitis of both eyes 08/01/2019 Renal cyst 03/23/2019 Diverticulosis 01/15/2018 Overview (12/08/2023): CT Abdomen 01/14/18 Hepatic steatosis 01/15/2018 Chest pain 11/10/2016 Overview (12/08/2023): 10/2016 cardiac cath with MLI Hyperlipidemia 03/06/2014 Assessment & Plan (06/05/2024 8:31 AM EDT): Orders: Lipid panel with reflex to direct LDL; Future Positive PPD 10/18/2013 Lipoma of abdominal wall 08/14/2013 GERD (gastroesophageal reflux disease) 9 Overview (12/08/2023): EGD + esophageal bx 09/03/2008: Esophageal biopsies were normal. Dysphagia 09/03/2008 Overview (12/08/2023): EGD and esophageal bx 09/03/2008: Esophageal biopsies were normal. Polyneuropathy 09/06/2007 Benign prostatic hyperplasia 03/24/2006 Overview (12/08/2023): Follows with urology. Encounters Date Type Department Care Team Description 11/01/2024 Telephone Adult Medicine [address] [phone] Paulie Martinez MD 10/31/2024 1:00 PM EDT Office Visit [address] [phone] Paulie Martinez MD Sore throat (Primary Dx); Dysphagia, unspecified type; Glands swollen; Parkinson's disease, unspecified whether dyskinesia present, unspecified whether manifestations fluctuate ([facility] V24, [facility] V28) 10/30/2024 Nurse Triage [address] [phone] Paulie Martinez MD 09/14/2024 12:28 PM EDT - 09/14/2024 11:59 PM EDT Hospital Encounter [facility] [address] [place] [address] Moderate persistent asthma, uncomplicated Discharge Disposition: Home or Self Care from Last 3 Months Immunizations Name Administration Dates Next Due Influenza Quadravalent, 0.5m l (Fluad) 65yo and older 02/13/2022,12/25/2020,12/09/2015,12/03,01/17/2013,01/06/2011 Influenza Quadravalent, MDCK , 0.5ml, with preservative (Flucelvax) 6mo and older 11/30/2017,12/14/2016 Influenza trivalent, 0.5mL ( Fluzone High-dose) 65yo and older 12/08/2022,04/03/2020 Influenza trivalent, MDCK, 0 .5mL, preservative free (Flucelvax) 6mo and older 01/14/2024 Influenza trivalent, with pr eservative (Fluzone; Afluria) 6mo and older 12/09/2015,12/03/2014,01/17/2013,01/06 Influenza, Unspecified 03/09/2022 Moderna SARS-CoV-2 COVID-19, mRNA, LNP-S, preservative free 09/15/2021,09/15/2021,01/22/2021,01/22,06/20/2020,06/20/2020,05/23/2020 ,05/23/2020 Novel [id number] 12/08/2022,03/09,04/03/2020,11/30,12/14/2016 Pneumococcal conjugate 13 va lent (Prevnar 13, PCV13) 2mo and older 11/01/2019,11/01/2019 Pneumococcal polysaccharide 23 valent (Pneumovax 23) 2yo and older 05/04/2022,05/04/2022,12/26/2020,10/18,10/18/2013 Td Tetanus diptheria (Tdvax) 7yo and older 05/04/2022,05/04/2022 Tdap Tetanus diptheria acell ular pertussis (Boostrix; Adacel) 7yo and older 05/14/2008,05/14/2008 Surgical History Surgery Date Site/Laterality Comments OTHER SURGICAL HISTORY PROCEDURE: [place] ARTHRD PST/PSTLAT TQ 1NTRSPC CRV BELW C2 SEGMENT OTHER SURGICAL HISTORY JUNE 2008 PROCEDURE: NV TRURL ELECTROSURG RESCJ PROSTATE BLEED COMPLETE; COMMENT: laser TURP by Dr Omalley OTHER SURGICAL HISTORY 04/06/12 PROCEDURE: NV TRURL ELECTROSURG RESCJ PROSTATE BLEED COMPLETE; COMMENT: Dr Paul - bladder outlet obstruction OTHER SURGICAL HISTORY 2012 PROCEDURE: NV ESOPHAGOSCOPY FLEXIBLE TRANSORAL DIAGNOSTIC; COMMENT: normal OTHER SURGICAL HISTORY 2012 PROCEDURE: NV DILATION ESOPH UNGUIDED SOUND/BOUGIE 1/MULT PASS; COMMENT: size 50 Fr ESOPHAGOGASTRODUODENOSCOPY 09/03/2008 PROCEDURE: NV EGD TRANSORAL BIOPSY SINGLE/MULTIPLE; COMMENT: distal esophageal bx: Esophageal biopsies were normal. HERNIA REPAIR PROCEDURE: HISTORICAL HERNIA REPAIR/UMB HERNIA REPAIR Bilateral PROCEDURE: HISTORICAL HERNIA REPAIR/ING COLONOSCOPY 09/03/2008 PROCEDURE: HISTORICAL COLONOSCOPY; COMMENT: Normal OTHER SURGICAL HISTORY 03/22/2018 PROCEDURE: NV ESOPHAGEAL MOTILITY STUDY W/INTERP&RPT; COMMENT: [facility] - normal Medical History Medical History Date Comments Essential hypertension, benign D X:Essential hypertension, benign Cervical disc displacement DX:Ce rvical disc displacement GERD (gastroesophageal reflux disease) 9 DX:GERD (gastroesophageal reflux disease) Dysphagia 09/03/2008 DX:Dysphagia Family history of colonic polyps 09/03/2008 DX:Family history of colonic polyps Benign prostatic hyperplasia 03/24/2006 DX: Benign prostatic hyperplasia Chest pain 11/10/2016 DX:Chest pain; C OMMENT: 10/2016 cardiac cath with MLI Hyperlipidemia 03/06/2014 DX:Hyperlipidemi a Lipoma of abdominal wall 08/14/2013 DX:Lipo ma of abdominal wall Polyneuropathy 09/06/2007 DX:Polyneuropath y Positive PPD 10/18/2013 DX:Positive PPD Umbilical hernia 10/17/2015 DX:Umbilical he rnia; COMMENT: S/p repair Dysphagia DX:Dysphagia Functional dyspepsia DX:Function al dyspepsia Gastric pain DX:Gastric pain Family History Medical History Relation Name Comments Hypertension Father Breast cancer Maternal Grandmother Other cancer Maternal Grandmother Stomac h cancer; maternal aunt as well Breast cancer Mother Dementia Mother Heart attack Paternal Grandfather Hypertension Paternal Grandfather Colon polyps Sister dx in her 40's Relation Name Status Comments Father Maternal Grandfather Maternal Grandmother Mother Paternal Grandfather Sister Social History Tobacco Use Types Packs/Day Years Used Date Smoking Tobacco: Former Cigarettes 0.5 12 0 03/08/1969 - 03/08/1981 Smokeless Tobacco: Never Alcohol Use Standard Drinks/Week Comments Yes 0 (1 standard drink = 0.6 oz pur e alcohol) Sex and Gender Information Value Date Recorded Sex Assigned at Not on file Legal Sex Male 9:45 AM EST Gender Identity Not on file Sexual Orientation Not on file Obstetrics History Last Filed Vital Signs Vital Sign Reading Time Taken Comments Blood Pressure 108/62 10/31/2024 1:16 PM EDT Pulse 78 10/31/2024 1:16 PM EDT Temperature 36.6 C (97.8 F) 10/31/2024 1:16 PM EDT Respiratory Rate 14 10/31/2024 1:16 PM EDT Oxygen Saturation 97% 10/31/2024 1:16 PM EDT Inhaled Oxygen Concentration - - Weight 62.1 kg (137 lb) 10/31/2024 1:16 PM EDT Height 165.1 cm (5' 5 ) 10/31/2024 1:16 PM EDT Body Mass Index 22.8 10/31/2024 1:16 PM EDT Plan of Treatment Upcoming Encounters Date Type Department Care Team (Late st Contact Info) Description 02/16/2025 1:15 PM EST Office Visit [place] [facility] [place] [facility] [place] [address] [place] [address] Paulie Martinez MD [address] [place], [place] 08/30/2025 2:30 PM EDT Office Visit Nephrology - [address] [phone] Dalton Garcia MD [address] [phone] Health Maintenance Due Date Last Done Comments Zoster Vaccines (1 of 2) 1972 RSV Immunization Adult Patients (1 - Risk 60-74 years 1-dose series) 2013 Abdominal Aortic Aneurysm (AAA) Screen 02/14/2022 Social Influencers of Health Screening 02/14/2022 COVID-19 Vaccine ( season) 2024 09/15/2021, 09/15/2021, 01/22/2021, Additional history exists Influenza Vaccine (#1) 2024 , 12/08/2022, 03/09/2022, Additional history exists Falls Risk Assessment 06/05/2025 06/05/2024 , 06/05/2024, 06/03/2023, Additional history exists Medicare Annual Wellness Visit 06/05/2025 06/05/2024 Hypertension/CHF/CAD Annual BMP Blood Test 10/31/2025 10/31/2024, 06/08/2024, 05/18/2024, Additional history exists Colorectal Cancer Screening: Colonoscopy 09/10/2026 09/10/2016 Cholesterol Screening (Lipid Panel) 10/31/2029 10/31/2024, 06/08/2024, 01/20/2024, Additional history exists DTaP,Tdap,and Td Vaccines (5 - Td or Tdap) 05/04/2032 05/04/2022, 05/04/2022, 05/14/2008, Additional history exists Hepatitis C Screening Completed 10/18/2013, 014 Pneumococcal Vaccine: 50+ Years Completed 08/06/2023, 05/04/2022, 05/04/2022, Additional history exists Depression Screening Completed 06/05/2024, 06/03/2023, 06/03/2023 HIB Vaccines Aged Out No longer eligi ble based on patient's age to complete this topic HPV Vaccines Aged Out No longer eligi ble based on patient's age to complete this topic Hepatitis A Vaccines Aged Out No long er eligible based on patient's age to complete this topic Hepatitis B Vaccines Aged Out No long er eligible based on patient's age to complete this topic IPV Vaccines Aged Out No longer eligi ble based on patient's age to complete this topic MMR Vaccines Aged Out No longer eligi ble based on patient's age to complete this topic Meningococcal ACWY Vaccine Aged Out N o longer eligible based on patient's age to complete this topic Meningococcal B Vaccine Aged Out No l onger eligible based on patient's age to complete this topic RSV Immunization Patients Under 20 months Aged Out No longer eligible based on patient's age to complete this topic Varicella Vaccines Aged Out No longer eligible based on patient's age to complete this topic Procedures Procedure Name Priority Date/Time Associated Diagnosis Comments CULTURE THROAT Routine 10/31/2024 2:17 PM EDT Sore throat POC RAPID STREP A Routine 10/31/2024 2:0 4 PM EDT Sore throat CBC WITH AUTO DIFFERENTIAL Routine 10/31/2024 1:53 PM EDT Sore throat BASIC METABOLIC PANEL Routine 10/31/2024 1:53 PM EDT Chronic kidney disease, unspecified CKD stage CBC AND DIFFERENTIAL Routine 10/31/2024 1:53 PM EDT Sore throat LIPID PANEL WITH REFLEX TO DIRECT LDL Routine 10/31/2024 1:53 PM EDT Pure hypercholesterolemia HC SPIROMETRY BRONCHODILATION RESPONSIVENESS PRE/POST BRONCHODILATOR ADMINISTRATION Routine 09/14/2024 1:24 PM EDT Moderate persistent asthma, uncomplicated DEPRESSION SCREENING Routine 06/03/2023 FALLS RISK ASSESSMENT Routine 06/03/2023 COLONOSCOPY Routine 09/10/2016 HEPATITIS C SCREENING Routine 10/18/2013 from Last 3 Months or Most Recently Relevant to Health Maintenance Results * Culture throat (10/31/2024 2:17 PM EDT) Pathologist [facility] Culture, Throat No pathogens isolated. 11/02/2024 10:[address] [facility] Swab Structure of anterior region of neck / Unknown Non-blood Collection / Unknown 10/31/2024 2:17 PM EDT 10/31/2024 2:17 PM EDT us Paulie Martinez MD LAB [facility] Final Result [facility] [address] [place] [address], [place] [phone] * POC rapid strep A manually resulted (10/31/2024 2:04 PM EDT) Swab Structure of anterior region of neck / Unknown 10/31/2024 2:04 PM EDT us Paulie Martinez MD POINT OF CARE TEST ENTER/EDIT O RDERABLES Final Result * Lipid panel with reflex to direct LDL (10/31/2024 1:53 PM EDT) Cholesterol 133 0 - 200 mg/dL LAB CHEMISTRY METHOD 10/31/2024 5:[address] [facility] Triglycerides 106 0 - 150 mg/dL LAB CHEMISTRY METHOD 10/31/2024 5:[address] [facility] HDL 55 >=40 mg/dL LAB CHEMISTRY METHOD 10/31/2024 5:[address] [facility] LDL Calculated 57 0 - 100 mg/dL LAB CHEMISTRY METHOD 10/31/2024 5:[address] [facility] Comment:Estimated LDL Calcul ated using equation: Total cholesterol - HDL cholesterol - (Triglycerides/5) VLDL Cholesterol Prakash 21.2 mg/dL LAB CHEMISTRY METHOD 10/31/2024 5:[address] [facility] Non HDL Chol. (LDL+VLDL) 78 <145 mg/dL LAB CHEMISTRY METHOD 10/31/2024 5:[address] [facility] Chol/HDL Ratio 2.4 0.0 - 4.4 LAB CHEMISTRY METHOD 10/31/2024 5:[address] [facility] Blood Venous blood specimen / Unknown Venipuncture / Unknown 10/31/2024 1:53 PM EDT 10/31/2024 1:53 PM EDT us Paulie Martinez MD LAB BLOOD ORDERABLES Final Resu lt [facility] [address] [place] [address], [place] [phone] * (ABNORMAL) CBC auto differential (10/31/2024 1:53 PM EDT) WBC 6.5 4.8 - 10.8 K/mcL LAB HEMETOLOGY METHOD 10/31/2024 4:[address] [facility] RBC 4.20(L) 4.50 - 5.50 M/mcL LAB HEMETOLOGY METHOD 10/31/2024 4:[address] [facility] Hemoglobin 12.7(L) 13.5 - 17.5 g/dL LAB HEMETOLOGY METHOD 10/31/2024 4:[address] [facility] Hematocrit 37.4(L) 42.0 - 54.0 % LAB HEMETOLOGY METHOD 10/31/2024 4:[address] [facility] MCV 88.6 79.0 - 98.0 FL LAB HEMETOLOGY METHOD 10/31[facility]2024 [facility] MCH 30.1 27.0 - 32.0 pcg LAB HEMETOLOGY METHOD 10/31/2024 4:42 PM [facility] MCHC 34.0 32.0 - 37.0 g/dL LAB HEMETOLOGY METHOD 10/31/2024 4:42 PM [facility] RDW 12.1 11.0 - 15.0 % LAB HEMETOLOGY METHOD 10/31/2024 4:42 PM [facility] Platelets 203 130 - 400 K/mcL LAB HEMETOLOGY METHOD 10/31/2024 4:42 PM [facility] MPV 9.2 7.0 - 11.0 FL LAB HEMETOLOGY METHOD 10/31/2024 4:42 PM [facility] NRBC 0.0 <1.0 % LAB HEMETOLOGY METHOD 10/31/2024 4:42 PM [facility] NRBC Absolute 0.00 <0.10 K/mcL LAB HEMETOLOGY METHOD 10/31/2024 4:42 PM [facility] Neutrophils Relative 70.2 % LAB HEMETOLOGY METHOD 10/31/2024 4:42 PM [facility] Lymphocytes Relative 21.6 % LAB HEMETOLOGY METHOD 10/31[facility]2024 4:[facility] Monocytes Relative 6.3 % LAB HEMETOLOGY METHOD 10/31/2024 4:42 PM [facility] Eosinophils Relative 0.9 % LAB HEMETOLOGY METHOD 10/31/2024 4:[address] [facility] Basophils Relative 0.8 % LAB HEMETOLOGY METHOD 10/31/2024 4:[address] [facility] Immature Granulocytes Relative 0.2 % LAB HEMETOLOGY METHOD 10/31/2024 4:[address] [facility] Neutrophils Absolute 4.54 1.50 - 7.00 K/mcL LAB HEMETOLOGY METHOD 10/31/2024 4:[address] [facility] Lymphocytes Absolute 1.40 1.00 - 5.00 K/mcL LAB HEMETOLOGY METHOD 10/31/2024 4:[address] [facility] Monocytes Absolute 0.41 0.20 - 1.00 K/mcL LAB HEMETOLOGY METHOD 10/31/2024 4:[address] [facility] Eosinophils Absolute 0.06 0.00 - 0.50 K/mcL LAB HEMETOLOGY METHOD 10/31/2024 4:[address] [facility] Basophils Absolute 0.05 0.00 - 0.20 K/mcL LAB HEMETOLOGY METHOD 10/31/2024 4:[address] [facility] Immature Granulocytes Absolute 0.01 0.00 - 0.03 K/mcL LAB HEMETOLOGY METHOD 10/31/2024 4:[address] [facility] Blood Venous blood specimen / Unknown Venipuncture / Unknown 10/31/2024 1:53 PM EDT 10/31/2024 1:53 PM EDT us Paulie Martinez MD LAB BLOOD ORDERABLES Final Resu lt [facility] [address] [place] [address], * (ABNORMAL) Basic metabolic panel (10/31/2024 1:53 PM EDT) [facility] Sodium 135 133 - 145 mmol/L LAB CHEMISTRY METHOD 10/31/2024 5:32 PM [facility] Potassium 4.3 3.5 - 5.5 mmol/L LAB CHEMISTRY METHOD 10/31/2024 5:32 PM [facility] Chloride 101 96 - 110 mmol/L LAB CHEMISTRY METHOD 10/31/2024 5:32 PM [facility] CO2 30 21 - 32 mmol/L LAB CHEMISTRY METHOD 10/31/2024 5:32 PM [facility] Anion Gap 4 3 - 11 LAB CHEMISTRY METHOD 10/31/2024 5:32 PM [facility] Glucose 102(H) 70 - 100 mg/dL LAB CHEMISTRY METHOD 10/31/2024 5:32 PM [facility] BUN 17 5 - 25 mg/dL LAB CHEMISTRY METHOD 10/31/2024 5:32 PM [facility] Creatinine 1.07 0.70 - 1.30 mg/dL LAB CHEMISTRY METHOD 10/31/2024 5:32 PM [facility] eGFR 74 >=60 mL/min/1. 73m2 LAB CHEMISTRY METHOD 10/31/2024 5:32 PM [facility] Comment:Calculation based on the Chronic Kidney Disease Epidemiology Collaboration (CKD-EPI) equation refit without adjustment for race. BUN/Creatinine Ratio 15.9 LAB CHEMISTRY METHOD 10/31/2024 5:32 PM [facility] Calcium 9.2 8.5 - 10.5 mg/dL LAB CHEMISTRY METHOD 10/31/2024 5:32 PM [facility] Blood Venous blood specimen / Unknown Venipuncture / Unknown 10/31/2024 1:53 PM EDT 10/31/2024 1:53 PM EDT us Dalton Garcia MD LAB BLOOD ORDERABLES Final Res ult [facility] [place] [facility] [address] [place] [address], [place] [phone] * Pulmonary function testing: Nitrogen Wash Out, Carbon Monoxide Diffusing Capacity, Spirometry with Bronchodilator (09/14/2024 1:24 PM EDT) Impressions Yancy Harding MD - 09/14/2024 1:27 PM EDT Pulmonary function test interpretation. Spirometry reveals FEV1 of 2.90 which is 110% of the predicted value, FVC is 3.56 which is 93% of the predicted value, FEV1 to FVC ratio is 105% of the predicted value, there is no bronchodilator response. Flow volume is consistent with normal pattern. Static lung volumes including total lung capacity is mildly reduced. Diffusion lung capacity is moderately reduced however was mildly reduced after correction for alveolar volume. The study is consistent with mild restrictive lung disease, for which clinical correlation is advised. Result [facility] Santa Li MD PFT ORDERABLES Final Result * Falls Risk Assessment (06/03/2023) [facility] Falls Risk Assessment abstracted Result [facility] [employer] Final Result * Depression Screening (06/03/2023) [facility] Depression Screening abstracted Result [facility] [employer] Final Result * Colonoscopy (09/10/2016) [facility] Colonoscopy no interpretation , abstracted Anatomical Region Laterality Modality Other Result [facility] Historical [place] [facility] [employer] Final Result * Hepatitis C Screening (10/18/2013) [facility] Hepatitis C Screening abstracted Result [facility] [employer] Final Result from Last 3 Months or Most Recently Relevant to Health Maintenance Insurance MEDICARE MEDICAID [place] Advance Directives * Full Code - Confirmed (Latest Code Status on File) Date Activated Date Inactivated Comments 06/05/2024 8:15 AM This code stat us was ascertained in the following way: Code status discussion: discussion with patient To update the patient's code status, place a code status order. Do not modify or discontinue any currently active code status orders. Care Teams Barley Steeper Relationship Specialty Start Date End Date Paulie Martinez MD [address] [place] [phone] PCP - General Internal Medicine 01/26/24
--- OUTSIDE RECORDS SUMMARY | 2024-11-29 15:19 | XMS_ITS | Encounter Summary ---
Author Organization [facility] Address [address] [place] [address] Care Team Providers Care Child'S Nurse Name Role Phone Paulie Martinez MD Primary Care Provider [phone] Paulie Martinez MD Primary Care Provider [phone] Félix Ryan Primary Care Provider Unav ailable Paulie Martinez MD Primary Care Provider [phone] Arelis Gama MD Unavailable [phone] Encounter Details Date Type Department Care Team Description 09/04/2016 Mine Wirer Report Medical Records [address] [place] [id number] Jesus Schumacher MD [address] [place] [address] [phone] Social History Tobacco Use Types Packs/Day Years Used Date Smoking Tobacco: Former Cigarettes 0.5 12 Q uit: 03/08/1981 Smokeless Tobacco: Never Comments:started at 14 Alcohol Use Standard Drinks/Week Comments Yes 0 (1 standard drink = 0.6 oz pur e alcohol) rare Sex Assigned at Date Recorded Not on file Job Start Date Occupation Industry Not on file Not on file Not on file documented as of this encounter Plan of Treatment Not on file documented as of this encounter Visit Diagnoses Not on filedocumented in this encounter Care Teams Child'S Nurse Relationship Specialty Start Date End Date Paulie Martinez MD [address] [place] [address] [phone] PCP - General 03/05/06 05/10/17 Paulie Martinez MD [address] [place] [address] PCP - General Internal Medicine 05/11/17 06/15/17 Félix Ryan [address] [place] [address] PCP - General Internal Medicine 06/16/17 09/15/17 Paulie Martinez MD [address] [place] [phone] PCP - General Internal Medicine 09/16/17 Arelis Gama MD [address] [place] [address] Specialist Neurosurgery 03/11/21 documented as of this encounter
--- OUTSIDE RECORDS SUMMARY | 2024-11-29 15:19 | XMS_ITS | Clinical Summary ---
[facility] Organization [facility] Address [address] [place] [address] Care Team Providers Care Hospital Ward Clerk Name Role Phone Paulie Martinez MD Primary Care Provider [phone] Arelis Gama MD Unavailable [phone] Allergies Active Allergy Reactions Severity Noted Date Comments Apap-Fd&C Blue #1 Roper-Propoxyphene Naps Rash/Dermatitis 03/30/2023 Sulfamethoxazole W-Trimethoprim 03/24/2006 rash Propoxyphene Hcl 03/24/2006 rash Kdc:Propoxyphene+[place] Blue Fcf 03/11/2021 Sulfadiazine Rash/Dermatitis 03/30/2023 Sulfamethoxazole-Trimethoprim 2023 Trimethoprim 03/11/2021 Valium 03/24/2006 anxiety and rage Medications Medication Sig Dispensed Refills Start Date End Date Status ciclopirox (LOPROX) 0.77 % cream APPLY SPARINGLY TO AFFECTED AREA AFTER SHOWER EVEN IF RASH IS NOT EVIDENT 15 g 11 09/06/2019 Active azelastine (ASTELIN) 0.1 % nasal spray 2 Sprays by Each Nare route 2 times daily. Use in each nostril as directed 1 Bottle 5 09/05/2020 Active fluticasone (Flonase) 50 MCG/ACT nasal spray 2 Sprays by Nasal route daily for 30 days. 1 Bottle 5 09/05/2020 Active ketotifen 0.025 % ophthalmic solution Place 1 Drop into both eyes 2 times daily as needed (itch or tear). 1 Bottle 5 09/05/2020 Active hydrOXYzine (ATARAX) 25 MG tablet TAKE 1 TO 2 TABLETS BY MOUTH AT BEDTIME 0 03/17/2021 Active quetiapine (SEROQUEL) 400 MG tablet 300 mg. 0 05/30/2021 Active mirtazapine (REMERON) 30 MG tablet Take 30 mg by mouth daily. 0 05/27/2021 Active acetaminophen (Tylenol) 325 MG tablet Take 2 Tablets by mouth. 0 01/17/2008 Active amoxicillin (AMOXIL) 500 MG tablet TAKE 1 TABLET BY MOUTH TWICE DAILY 0 03/19/2023 Active lisinopril (PRINIVIL,ZESTRIL) 20 MG tablet Take 1 Tablet by mouth. 0 12/04/2021 Active loratadine (CLARITIN) 10 MG tablet Take 1 Tablet by mouth. 0 10/14/2016 Active lorazepam (ATIVAN) 1 MG tablet TAKE 1/2 TO 1 TABLET BY MOUTH UP TO THREE TIMES DAILY NEEDED FOR EXTREME ANXIETY 0 02/22/2023 Active Lurasidone HCl 60 MG Tab Take 1 Tablet by mouth daily. 0 03/17/2023 Active methylphenidate (Ritalin) 20 MG tablet Take 1 Tablet by mouth. 0 10/14/2016 Active sertraline (ZOLOFT) 100 MG tablet TAKE 1 AND 1/2 TABLETS BY MOUTH DAILY 0 01/21/2023 Active Ingrezza 40 MG Cap TAKE 1 CAPSULE BY MOUTH DAILY 0 02/23/2023 Active Ventolin HFA 108 (90 Base) MCG/ACT Aero Soln Inhale 2 Puffs into the lungs every 6 hours as needed for Cough, Wheezing or Shortness of Breath. 54 g 1 05/13/2023 Active aspirin 81 MG tablet Take 1 Tablet by mouth daily. 90 Tablet 1 05/13/2023 Active ferrous sulfate 325 (65 Fe) MG tablet Take 1 Tablet by mouth daily. 90 Tablet 1 05/13/2023 Active sennosides-docusate sodium (SENOKOT-S) 8.6-50 MG tablet Take 2 Tablets by mouth daily. 180 Tablet 1 05/13/2023 Active omeprazole (PRILOSEC) 40 MG capsule TAKE 1 CAPSULE BY MOUTH TWICE DAILY 180 Capsule 1 06/01/2023 Active prazosin (MINIPRESS) 1 MG capsule Take 1 Capsule by mouth at bedtime. 0 07/12/2023 Active carbidopa-levodopa (SINEMET) 25-100 MG per tablet Take 1 Tablet by mouth 2 times daily. 0 05/10/2023 Active carbidopa-levodopa (Sinemet) 25-100 MG per tablet Take 1 Tablet by mouth 3 times daily. 90 Tablet 11 07/13/2023 Active Nutritional Supplements (Ensure) LiquidIndications:Par kinson's disease, unspecified whether dyskinesia present, unspecified whether manifestations fluctuate (HCC),Anorexia,Weight loss Take 1 Can by mouth 2 times daily. AME-99 One can twice a day (2/day) 60 per month with 5 refills 86624 mL 5 07/14/2023 Active amlodipine (NORVASC) 5 MG tablet TAKE 1 TABLET BY MOUTH DAILY 90 Tablet 1 08/19/2023 Active simvastatin (ZOCOR) 20 MG tablet TAKE 1 TABLET BY MOUTH AT BEDTIME 90 Tablet 1 08/23/2023 Active Active Problems Problem Noted Date Parkinson's disease 12/08/2022 Cervical spondylosis 06/06/2021 Last Assessment & Plan: Mr. Gonzalez was [...] his cervical spine MRI from 11/07/2020 at [facility] which shows a solid fusion at C5-6 [...] versus cervical radiculopathy. Neck pain, chronic 03/11/2021 Last Assessment & Plan: Mr. Gonzalez has [...] treatment. 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 Dysphagia 09/03/2008 Overview: EGD and esophageal bx 09/03/2008: Esophageal biopsies were normal. Family history of colonic polyps 009 Overview: Negative colonoscopy 09/10/16: F/u in 10 years Polyneuropathy 09/06/2007 Benign prostatic hyperplasia 03/24/2006 Overview: Follows with urology. Cervical disc displacement HTN (hypertension) Resolved Problems Problem Noted Date Resolved Date SOB (shortness of breath) 01/09/20202020 Bilateral groin pain 01/18/2018 04/14/2019 S/P bilateral inguinal hernia repair 01/06/2018 04/14/2019 Umbilical hernia 10/17/2015 04/14/2019 Overview: S/p repair Bilateral inguinal hernia without obstruction or gangrene 10/17/2015 09/04/2016 Inguinal hernia without obstruction or gangrene 10/14/2015 09/04/2016 Other malaise and fatigue 04/29/20062016 Other and unspecified noninf ectious gastroenteritis and colitis(558.9) 03/24/2006 06/04/2010 Immunizations Name Administration Dates Next Due COVID-19 (Moderna) 09/15/2021,,06/20/2020,05/23 Influenza (> 6 Months) 12/09/2015,2014,01/17/2013,01/06 Influenza Flu (PT Reported) 03/09/2022 Influenza Vaccine-quadrivale nt 4 Years Plus 11/30/2017,12/14/2016 Influenza vaccine high dose age 65 and over 12/08/2022,04/03/2020 Pneumoccoccal(Adult) Polysac charide PPSV23 05/04/2022,10/18/2013 Pneumococcal Conjugate PCV-13 11/01/2019 TD (STATE SUPPLIED FOR ADULT S AND CHILDREN) 05/04/2022 Tdap 05/14/2008 Family History Medical History Relation Name Comments Hypertension Father CA Breast Maternal Grandmother Cancer, Other Maternal Grandmother Stoma ch cancer; maternal aunt as well [place] Breast Mother Dementia Mother Hypertension Paternal Grandfather OR Paternal Grandfather Colon Polyps Sister dx in her 40's Relation Name Status Comments Father Maternal Grandfather Maternal Grandmother Mother Paternal Grandfather Sister Social History Tobacco Use Types Packs/Day Years Used Date Smoking Tobacco: Former Cigarettes 0.5 12 0 03/08/1969 - 03/08/1981 Smokeless Tobacco: Never Tobacco Cessation:Counseling Given: Not Answered Comments:started at 14 Alcohol Use Standard Drinks/Week Comments Yes 0 (1 standard drink = 0.6 oz pur e alcohol) rare, on holidays Sex Assigned at Date Recorded Not on file Job Start Date Occupation Industry Not on file Not on file Not on file Last Filed Vital Signs Vital Sign Reading Time Taken Comments Blood Pressure 104/80 10/06/2023 4:07 PM EDT Pulse 97 10/06/2023 4:07 PM EDT Temperature 36.4 C (97.6 F) 10/06/2023 4:07 PM EDT Respiratory Rate 16 10/06/2023 4:07 PM EDT Oxygen Saturation 97% 10/06/2023 4:07 PM EDT Inhaled Oxygen Concentration - - Weight 63 kg (139 lb) 10/06/2023 4:07 PM EDT Height 167.6 cm (5' 6 ) 10/06/2023 4:07 PM EDT Body Mass Index 22.44 10/06/2023 4:07 PM EDT Plan of Treatment Health Maintenance Due Date Last Done Comments SHINGLES VACCINE (1 of 2) 2003 FALL RISK ASSESSMENT 12/09/2023 12/08/2022, 10/24/2021, 09/27/2020, Additional history exists DEPRESSION SCREENING/FOLLOWUP 03/08/20243 (Completed), 06/08/2016, 12/25/2010, Additional history exists DEPRESSION SCREEN 06/02/2024 06/03/2023, (Completed), 09/27/2020, Additional history exists Covid-19 Vaccine ( - 2022-2 4 season) 2024 09/15/2021, 01/22/2021, 06/20/2020, Additional history exists INFLUENZA (#1) 2024 12/08/2022, 04/2022, 04/03/2020, Additional history exists COLON CANCER SCREENING 09/10/2026 09/10/2016, 2008 CHOLESTEROL SCREENING 07/12/2028 07/13/2023 , 12/08/2022, 05/04/2022, Additional history exists DTAP/TDAP/TD (3 - Td or Tdap) 05/04/2032 05/04/2022, 05/14/2008 HEPATITIS C SCREENING Completed 10/18/2013 PNEUMOCOCCAL VACCINE Completed 05/04/2022, 11/01/2019, 10/18/2013 Care Teams Hospital Ward Clerk Relationship Specialty Start Date End Date Paulie Martinez MD [address] [place] [phone] PCP - General Internal Medicine 09/16/17 Arelis Gama MD [address] [place] [address] Specialist Neurosurgery 03/11/21
--- OUTSIDE RECORDS SUMMARY | 2024-11-29 15:19 | XMS_ITS | Encounter Summary ---
Author Organization [facility] Address [address] [place] [address] Care Team Providers Care Security Flex Utility Officer Name Role Phone Paulie Martinez MD Primary Care Provider [phone] Arelis Gama MD Unavailable [phone] Reason for Visit * Reason Onset Date Comments Testing 07/28/2018 ECHO APPT Encounter Details Date Type Department Care Team Description 07/28/2018 Telephone Radiology - [place] [address] [place] [address] [phone] Paulie Martinez MD [address] [place] [address] [phone] Testing (ECHO APPT) Social History Tobacco Use Types Packs/Day Years [...] on file documented as of this encounter Miscellaneous Notes * Telephone Encounter - Valentine Talavera - 07/28/2018 8:01 AM EDT ECHO has been scheduled at [facility] for 08/31/18 at 8:30 am Information letter has been mailed Valentine López documented in this encounter Plan of Treatment Not on file documented as of this encounter Visit Diagnoses Not on filedocumented in this encounter Care Teams Security Flex Utility Officer Relationship Specialty Start Date End Date Paulie Martinez MD [address] [place] [phone] PCP - General Internal Medicine 09/16/17 Arelis Gama MD [address] [place] [address] [place] [address] Specialist Neurosurgery 03/11/21 documented as of this encounter
--- OUTSIDE RECORDS SUMMARY | 2024-11-29 15:19 | XMS_ITS | Encounter Summary ---
Author Organization Leah [facility] Address [address] [place] [address] Care Team Providers Care Supervisor Chassis Assembly Name Role Phone Paulie Martinez MD Primary Care Provider Arelis Gama MD Unavailable [phone] Encounter Details Date Type Department Care Team Description 08/05/2018 Telephone Adult Medicine [address] [phone] Paulie Martinez MD [address] [place] [address] [phone] Social History Tobacco Use Types Packs/Day Years [...] on file documented as of this encounter Results * (ABNORMAL) BASIC METABOLIC PANEL (12/03/2018 1:34 PM EDT) Pathologist [facility] GLUCOSE 102(H) 70 - 100 mg/dL 12/03/2018 6:11 PM EDT [facility] Comment:Reference range appl icable to fasting specimens only Blood Urea Nitrogen 17 5 - 25 mg/dL 12/03/2018 6:11 PM EDT [facility] CREAT 1.27 0.7 - 1.3 mg/dL 12/03/2018 6:11 PM EDT [facility] GLOMERULAR FILTRATION RATE 57 12/03/2018 6:11 PM EDT [facility] Comment: If patient is -Samoan, multiply result by 1.21 Chronic Kidney Disease: < 60 ml/min/1.73 square meters Kidney Failure: < 15 ml/min/1.73 square meters NA 134(L) 135 - 145 mEq/L 12/03/2018 6:11 PM EDT [facility] K 4.5 3.5 - 5.5 mmol/L 12/03/2018 6:11 PM EDT [facility] CL 102 96 - 110 mmol/L 12/03/2018 6:11 PM EDT [facility] CARBON DIOXIDE (CO2) 27 21 - 32 mmol/L 12/03/2018 6:11 PM EDT [facility] ANION GAP 5 3 - 11 12/03/2018 6:11 PM EDT [facility] CALCIUM 8.6 8.5 - 10.5 mg/dL 12/03/2018 6:11 PM EDT [facility] 12/03/2018 1:34 PM EDT 12/03/2018 1:34 PM EDT Paulie Martinez MD LAB [facility] documented in this encounter Visit Diagnoses Diagnosis Decreased GFR- Primary Nonspecific abnormal results of kidney function study documented in this encounter Care Teams Supervisor Chassis Assembly Relationship Specialty Start Date End Date Paulie Martinez MD [address] [place] [phone] PCP - General Internal Medicine 09/16/17 Arelis Gama MD [address] [facility] [address] [place] [address] Specialist Neurosurgery 03/11/21 documented as of this encounter
--- OUTSIDE RECORDS SUMMARY | 2024-11-29 15:19 | XMS_ITS | Encounter Summary ---
Author Organization Leah [facility] Address [address] [place] [address] Care Team Providers Care Linen Folder Name Role Phone Paulie Martinez MD Primary Care Provider [phone] Arelis Gama MD Unavailable [phone] Encounter Details Date Type Department Care Team Description 01/23/2019 Orders Only Hypertension - [place] [address] [place] [address] Tiera Geiger, Pharm.D Social History Tobacco Use Types Packs/Day Years [...] on filedocumented in this encounter Care Teams Linen Folder Relationship Specialty Start Date End Date Paulie Martinez MD [address] [place] [phone] PCP - General Internal Medicine 09/16/17 Arelis Gama MD [address] [facility] [address] [place] [address] Specialist Neurosurgery 03/11/21 documented as of this encounter
--- OUTSIDE RECORDS SUMMARY | 2024-11-29 15:19 | XMS_ITS | Encounter Summary ---
Author Organization [facility] Address [address] [place] [address] Care Team Providers Care Certified Financial Planner Name Role Phone Paulie Martinez MD Primary Care Provider [phone] Arelis Gama MD Unavailable [phone] Encounter Details Date Type Department Care Team Description 05/09/2019 Release of Information Medical Records [address] [place] [id number] Abstract, Provider Social History Tobacco Use Types Packs/Day Years [...] on filedocumented in this encounter Care Teams Certified Financial Planner Relationship Specialty Start Date End Date Paulie Martinez MD [address] [place] [address] PCP - General Internal Medicine 09/16/17 Arelis Gama MD [address] [facility] [address] [place] [address] Specialist Neurosurgery 03/11/21 documented as of this encounter
--- OUTSIDE RECORDS SUMMARY | 2024-11-29 15:19 | XMS_ITS | Encounter Summary ---
Author Organization Leah [facility] Address [address] [place] [address] Care Team Providers Care Byproducts Operator Name Role Phone Paulie Martinez MD Primary Care Provider [phone] Paulie Martinez MD Primary Care Provider [phone] Félix Ryan Primary Care Provider Unav Paulie Looney MD Primary Care Provider [phone] Arelis Gama MD Unavailable [phone] Encounter Details Date Type Department Care Team Description 05/05/2012 Insurance Advisor Report Medical Records [address] [place] [id number] Layo Paul Social History Tobacco Use Types Packs/Day Years [...] on filedocumented in this encounter Care Teams Byproducts Operator Relationship Specialty Start Date End Date Paulie Martinez MD [address] [place] [address] [phone] PCP - General 03/05/06 05/10/17 Paulie Martinez MD [address] [place] [address] PCP - General Internal Medicine 05/11/17 06/15/17 Félix Ryan [address] [place] [address] [phone] PCP - General Internal Medicine 06/16/17 09/15/17 Paulie Martinez MD [address] [place] [address] 15167 PCP - General Internal Medicine 09/16/17 Arelis Gama MD [address] [place] [address] Specialist Neurosurgery 03/11/21 documented as of this encounter
--- OUTSIDE RECORDS SUMMARY | 2024-11-29 15:19 | XMS_ITS | Encounter Summary ---
Author Organization Leah [facility] [facility] Address [address] [place] [address] Care Team Providers Care Net Ui Developer Name Role Phone Paulie Martinez MD Primary Care Provider [phone] Paulie Martinez MD Primary Care Provider [phone] Félix Ryan Primary Care Provider Unav ailable Paulie Martinez MD Primary Care Provider [phone] Arelis Gama MD Unavailable [phone] Reason for Visit * Reason Onset Date Comments REFERRAL 07/02/2014 Encounter Details Date Type Department Care Team Description 07/02/2014 Telephone Adult Medicine [address] [address] Paulie Martinez MD [address] [place] [address] [phone] REFERRAL Social History Tobacco Use Types Packs/Day Years Used Date Smoking Tobacco: Former Cigarettes 0.5 12 Q uit: 03/08/1981 Smokeless Tobacco: Former Comments:started at 14 Alcohol Use Standard Drinks/Week Comments Yes 0 (1 standard drink = 0.6 oz pur e alcohol) rare Sex Assigned at Date Recorded Not on file Job Start Date Occupation Industry Not on file Not on file Not on file documented as of this encounter Miscellaneous Notes * Telephone Encounter - Omaira Lev - 07/02/2014 11:12 AM EDT Patient was referred to Gastro and has not followed through on this. The will be removed from the active list. documented in this encounter Plan of Treatment Not on file documented as of this encounter Visit Diagnoses Not on filedocumented in this encounter Care Teams Net Ui Developer Relationship Specialty Start Date End Date Paulie Martinez MD [address] [place] [address] PCP - General 03/05/06 05/10/17 Paulie Martinez MD [address] [place] [address] PCP - General Internal Medicine 05/11/17 06/15/17 Félix Ryan [address] [place] [address] PCP - General Internal Medicine 06/16/17 09/15/17 Paulie Martinez MD [address] [place] [address] 59912 PCP - General Internal Medicine 09/16/17 Arelis Gama MD [address] [place] [address] Specialist Neurosurgery 03/11/21 documented as of this encounter
--- OUTSIDE RECORDS SUMMARY | 2024-11-29 15:19 | XMS_ITS | Encounter Summary ---
Author Organization Leah [facility] Address [address] [place] [address] Care Team Providers Care Board Certified Orthodontist Name Role Phone Paulie Martinez MD Primary Care Provider Paulie Martinez MD Primary Care Provider [phone] Félix Ryan Primary Care Provider Unav ailable Paulie Martinez MD Primary Care Provider [phone] Arelis Gama MD Unavailable [phone] Reason for Visit * Reason Onset Date Comments Medication 07/28/2016 Encounter Details Date Type Department Care Team Description 07/28/2016 Telephone Gastroenterology - [address] [phone] Uli Delgado MD Medication Social History Tobacco Use Types Packs/Day Years [...] encounter Miscellaneous Notes * Telephone Encounter - Uli Delgado MD - 07/28/2016 10:03 AM EDT Prescribed * Telephone Encounter - Yvonne Pennington - 07/28/2016 9:47 AM EDT Patient has scheduled a procedure, please prescribe prep. Thank you! documented in this encounter Plan of Treatment Not on file documented as of this encounter Visit Diagnoses Not on filedocumented in this encounter Care Teams Board Certified Orthodontist Relationship Specialty Start Date End Date Paulie Martinez MD [address] [place] [address] PCP - General 03/05/06 05/10/17 Paulie Martinez MD [address] [place] [address] 29[address] PCP - General Internal Medicine 05/11/17 06/15/17 Félix Ryan [address] [place] [address] 76[address] PCP - General Internal Medicine 06/16/17 09/15/17 Paulie Martinez MD [address] [place] [address] PCP - General Internal Medicine 09/16/17 Arelis Gama MD [address] [place] [address] Specialist Neurosurgery 03/11/21 documented as of this encounter
--- OUTSIDE RECORDS SUMMARY | 2024-11-29 15:19 | XMS_ITS | Encounter Summary ---
Author Organization Leah [facility] Address [address] [place] [address] Care Team Providers Care Operating Room Nurse Name Role Phone Paulie Martinez MD Primary Care Provider [phone] Arelis Gama MD Unavailable [phone] Encounter Details Date Type Department Care Team Description 08/05/2021 Drafting Clerk Report Medical Records [address] [place] [address] Santa Li MD Social History Tobacco Use [...] file Not on file Not on file COVID-19 Exposure Response Date Recorded In the last 10 days, have yo u been in contact with someone who was confirmed or suspected to have Coronavirus/COVID-19? No / Unsure 07/22/2021 4:01 PM EDT documented as of this encounter Plan of Treatment Not on file documented as of this encounter Visit Diagnoses Not on filedocumented in this encounter Care Teams Operating Room Nurse Relationship Specialty Start Date End Date Paulie Martinez MD [address] [place] [address] PCP - General Internal Medicine 09/16/17 Arelis Gama MD [address] [place] [address] Specialist Neurosurgery 03/11/21 documented as of this encounter
--- OUTSIDE RECORDS SUMMARY | 2024-11-29 15:19 | XMS_ITS | Encounter Summary ---
Author Organization Leah [facility] Address [address] [place] [address] Care Team Providers Care Finance Professor Name Role Phone Paulie Martinez MD Primary Care Provider [phone] Paulie Martinez MD Primary Care Provider [phone] Félix Ryan Primary Care Provider Unav Paulie Looney MD Primary Care Provider [phone] Arelis Gama MD Unavailable [phone] Encounter Details Date Type Department Care Team Description 04/19/2012 Director Market Intelligence Report Medical Records [address] [place] [address] Layo Paul Social History Tobacco Use Types [...] on filedocumented in this encounter Care Teams Finance Professor Relationship Specialty Start Date End Date Paulie Martinez MD [address] [place] [address] [phone] PCP - General 03/05/06 05/10/17 Paulie Martinez MD [address] [place] [address] PCP - General Internal Medicine 05/11/17 06/15/17 Félix Ryan [address] [place] [address] PCP - General Internal Medicine 06/16/17 09/15/17 Paulie Martinez MD [address] [place] [address] 04644 PCP - General Internal Medicine 09/16/17 rAelis Gama MD [address] [place] [address] Specialist Neurosurgery 03/11/21 documented as of this encounter
--- OUTSIDE RECORDS SUMMARY | 2024-11-29 15:19 | XMS_ITS | Encounter Summary ---
Author Organization Leah [facility] Address [address] [place] [address] Care Team Providers Care Analytical Chemistry Teacher Name Role Phone Paulie Martinez MD Primary Care Provider [phone] Paulie Martinez MD Primary Care Provider [phone] Félix Ryan Primary Care Provider Unav Paulie Looney MD Primary Care Provider [phone] Arelis Gama MD Unavailable [phone] Encounter Details Date Type Department Care Team Description 10/19/2011 Fill Manager Report Medical Records [address] [place] [address] Layo Paul Social History Tobacco Use Types [...] on filedocumented in this encounter Care Teams Analytical Chemistry Teacher Relationship Specialty Start Date End Date Paulie Martinez MD [address] [place] [address] [phone] PCP - General 03/05/06 05/10/17 Paulie Martinez MD [address] [place] [address] PCP - General Internal Medicine 05/11/17 06/15/17 Félix Ryan [address] [place] [address] PCP - General Internal Medicine 06/16/17 09/15/17 Paulie Martinez MD [address] [place] [address] PCP - General Internal Medicine 09/16/17 Arelis Gama MD [address] [place] [address] Specialist Neurosurgery 03/11/21 documented as of this encounter
--- OUTSIDE RECORDS SUMMARY | 2024-11-29 15:19 | XMS_ITS | Clinical Summary ---
Author Organization [facility] Address [address] [place] [address] Care Team Providers Care Digital Project Coordinator Name Role Phone Paulie Martinez MD Primary Care Provider Social History Tobacco Use Types Packs/Day Years Used Date Smoking Tobacco: Never Assessed Sex and Gender Information Value Date Recorded Sex Assigned at Not on file Gender Identity Not on file Sexual Orientation Not on file Plan of Treatment Health Maintenance Due Date Last Done Comments Hepatitis C Screening 1953 Depression Screening 1965 Preventative Health Evaluation 1971 Colon Cancer Screening (Colonoscopy) 1998 Shingrix-Zoster Vaccine (1 of 2) 2003 Fall Risk Assessment 2018 DTap / Tdap / Td (2 - Td or Tdap) 05/14/2018 05/14/2008 Pneumococcal Vaccine (3 of 3 - PPSV23 or PCV20) 10/31/2024 11/01/2019, 10/18/2013 COVID-19 Vaccine (3 - season) 2024 06/20/2020, 05/23/2020 Influenza Vaccine (#1) 2024 , 11/30/2017, 12/14/2016, Additional history exists RSV Adult > 60+ Yrs or (1 - 1-dose 75+ series) 2028 Hepatitis B Vaccines Aged Out No long er eligible based on patient's age to complete this topic RSV Ped < 20 months Aged Out No longe r eligible based on patient's age to complete this topic Care Teams Digital Project Coordinator Relationship Specialty Start Date End Date Paulie Martinez MD PCP - General Internal Medicine 01/27/21
--- OUTSIDE RECORDS SUMMARY | 2024-11-29 15:19 | XMS_ITS | Encounter Summary ---
Author Organization Leah [facility] Address [address] [place] [address] Care Team Providers Care Antichecking Iron Worker Name Role Phone Paulie Martinez MD Primary Care Provider [phone] Paulie Martinez MD Primary Care Provider [phone] Félix Ryan Primary Care Provider Unav Paulie Looney MD Primary Care Provider [phone] Arelis Gama MD Unavailable [phone] Encounter Details Date Type Department Care Team Description 04/06/2012 [facility] Medical Records [address] [place] [address] Layo Paul Social History Tobacco Use Types [...] on filedocumented in this encounter Care Teams Antichecking Iron Worker Relationship Specialty Start Date End Date Paulie Martinez MD [address] [place] [address] [phone] PCP - General 03/05/06 05/10/17 Paulie Martinez MD [address] [place] [address] PCP - General Internal Medicine 05/11/17 06/15/17 Félix Ryan [address] [place] [address] PCP - General Internal Medicine 06/16/17 09/15/17 Paulie Martinez MD [address] [place] [address] PCP - General Internal Medicine 09/16/17 Arelis Gama MD [address] [place] [address] Specialist Neurosurgery 03/11/21 documented as of this encounter
--- OUTSIDE RECORDS SUMMARY | 2024-11-29 15:19 | XMS_ITS | Encounter Summary ---
Author Organization Leah [facility] Address [address] [place] [address] Care Team Providers Care Shoe Parts Caser Name Role Phone Paulie Martinez MD Primary Care Provider [phone] Arelis Gama MD Unavailable [phone] Reason for Visit * Reason Onset Date Comments Testing 01/09/2020 Encounter Details Date Type Department Care Team Description 01/09/2020 Telephone Medicine/Pediatrics - [place] [address] [place] [phone] Paulie Martinez MD [address] [place] [address] [phone] Testing Social History Tobacco Use Types Packs/Day Years [...] Exposure Response Date Recorded In the last month, have you been in contact with someone who was confirmed or suspected to have Coronavirus / COVID-19? No / Unsure 01/09/2020 11:04 AM EST documented as of this encounter Plan of Treatment Not on file documented as of this encounter Visit Diagnoses Not on filedocumented in this encounter Care Teams Shoe Parts Caser Relationship Specialty Start Date End Date Paulie Martinez MD [address] [place] [address] PCP - General Internal Medicine 09/16/17 Arelis Gama MD [address] [place] [address] Specialist Neurosurgery 03/11/21 documented as of this encounter
--- OUTSIDE RECORDS SUMMARY | 2024-11-29 15:19 | XMS_ITS | Encounter Summary ---
Author Organization Leah [facility] Address [address] [place] [address] Care Team Providers Care Hha Name Role Phone Paulie Martinez MD Primary Care Provider [phone] Arelis Gama MD Unavailable [phone] Encounter Details Date Type Department Care Team Description 08/13/2021 Refill Adult Medicine [address] [address] Sol Zheng PA Social History Tobacco Use Types Packs/Day Years [...] PM EDT documented as of this encounter Miscellaneous Notes * Telephone Encounter - Carmela Middleton - 08/13/2021 12:21 PM EDT Lab Results Component Value Date NA 138 03/27/2021 K 4.2 03/27/2021 CO2 29 03/27/2021 CL 103 03/27/2021 BUN 19 03/27/2021 CREAT 1.17 03/27/2021 GLU 102 03/27/2021 CA 8.9 03/27/2021 GFR > 60 03/27/2021 documented in this encounter Plan of Treatment Not on file documented as of this encounter Visit Diagnoses Not on filedocumented in this encounter Care Teams Hha Relationship Specialty Start Date End Date Paulie Martinez MD [address] [place] [address] PCP - General Internal Medicine 09/16/17 Arelis Gama MD [address] [place] [address] Specialist Neurosurgery 03/11/21 documented as of this encounter
--- OUTSIDE RECORDS SUMMARY | 2024-11-29 15:19 | XMS_ITS | Encounter Summary ---
Author Organization Leah [facility] Address [address] [place] [address] Care Team Providers Care Pottery Decoration Designer Name Role Phone Paulie Martinez MD Primary Care Provider Paulie Martinez MD Primary Care Provider [phone] Félix Ryan Primary Care Provider Unav ailable Paulie Martinez MD Primary Care Provider [phone] Arelis Gama MD Unavailable [phone] Reason for Visit * Reason Onset Date Comments Prior Authorization 01/20/2015 Encounter Details Date Type Department Care Team Description 01/20/2015 Telephone Adult Medicine [address] [address] Paulie Martinez MD [address] [place] [address] [phone] Prior Authorization Social History Tobacco Use Types Packs/Day Years [...] encounter Miscellaneous Notes * Telephone Encounter - Lety Ortega M.A. - 01/21/2015 8:50 AM EST prohair not covered by insurance.. Must have tried two medications on formulary and failed. Covered formulary meds: Ventolin HFA inhaler Pending for your signature. Please check dosing and instructions Thank you Please reply back to p [phone] prior authorization pool Renu Ortega C.M.A. [facility] Prior Authorizations Ext: [phone] * Telephone Encounter - Lavell Treadwell - 01/20/2015 4:10 PM EST Pre Authorization for Medication Name of Medication: prohair INH Dose of Medication: 200 puffs 8.5 GM Dos Ctr How does patient take this med? Inhale 2 puffs into the lungs four times daily as needed for cough Patient???s current medical insurance:: Payor: [employer] / Plan: [employer] $0 JULIANNE [id number] / Product Type: MEDICAID [id number] Notes/Comments from faxed P.A.: request=reason for denial: Insurance plan does not cover requested medication [employer] Help Desk phone number listed on fax: [phone] If phone number not listed on fax go to appointment screen; then click registration; choose insurance claim address; phone number to right on coverage address. What is patients CARDHOLDER ID#: [id number] Pharmacy Information: Pharmacy; address; phone and fax number that patient uses? [address] [address] [phone] FAx [phone] documented in this encounter Plan of Treatment Not on file documented as of this encounter Visit Diagnoses Not on filedocumented in this encounter Care Teams Pottery Decoration Designer Relationship Specialty Start Date End Date Paulie Martinez MD [address] [place] [address] [phone] PCP - General 03/05/06 05/10/17 Paulie Martinez MD [address] [place] [address] PCP - General Internal Medicine 05/11/17 06/15/17 Félix Ryan [address] [place] [address] PCP - General Internal Medicine 06/16/17 09/15/17 Paulie Martinez MD [address] [place] [address] PCP - General Internal Medicine 09/16/17 Arelis Gama MD [address] [place] [address] Specialist Neurosurgery 03/11/21 documented as of this encounter
--- OUTSIDE RECORDS SUMMARY | 2024-11-29 15:19 | XMS_ITS | Encounter Summary ---
Author Organization Leah [facility] Address [address] [place] [address] Care Team Providers Care Green Prize Packer Name Role Phone Paulie Martinez MD Primary Care Provider [phone] Paulie Martinez MD Primary Care Provider [phone] Félix Ryan Primary Care Provider Unav ailable Paulie Martinez MD Primary Care Provider [phone] Arelis Gama MD Unavailable [phone] Reason for Visit * Reason Onset Date Comments APPOINTMENT 10/17/2015 Encounter Details Date Type Department Care Team Description 10/17/2015 Telephone Radiology - [address] [phone] Paulie Martinez MD [address] [place] [address] APPOINTMENT Social History Tobacco Use Types Packs/Day Years [...] encounter Miscellaneous Notes * Telephone Encounter - Gianluca Sunitha - 10/17/2015 1:03 PM EDT oeduled for an echocardiogram per jorden pablo from cardiology. There is also an order in the system from dr. Martinez. Entered on 10/14/15. Radiology will c.c. A copy to dr. Martinez, therefore the order will removed. Thank you documented in this encounter Plan of Treatment Not on file documented as of this encounter Visit Diagnoses Not on filedocumented in this encounter Care Teams Green Prize Packer Relationship Specialty Start Date End Date Paulie Martinez MD [address] [place] [address]752 PCP - General 03/05/06 05/10/17 Paulie Martinez MD [address] [place] [address]324 PCP - General Internal Medicine 05/11/17 06/15/17 Félix Ryan [address] [place] [address] PCP - General Internal Medicine 06/16/17 09/15/17 Paulie Martinez MD [address] [place] [address] PCP - General Internal Medicine 09/16/17 Arelis Gama MD [address] [place] [address] Specialist Neurosurgery 03/11/21 documented as of this encounter
--- OUTSIDE RECORDS SUMMARY | 2024-11-29 15:19 | XMS_ITS | Encounter Summary ---
Author Organization Leah [facility] Address [address] [place] [address] Care Team Providers Care Turn Machine Operator Name Role Phone Paulie Martinez MD Primary Care Provider Paulie Martinez MD Primary Care Provider [phone] Félix Ryan Primary Care Provider Unav ailable Paulie Martinez MD Primary Care Provider [phone] Arelis Gama MD Unavailable [phone] Reason for Visit * Reason Comments E-prescribe Rx Request Encounter Details Date Type Department Care Team Description 02/12/2011 Refill Cardiology - [address] [phone] Michel Olivera MD E-prescribe Rx Request Social History Tobacco Use Types Packs/Day Years [...] encounter Miscellaneous Notes * Telephone Encounter - Cristin Marroquin L.P.N. - 02/12/2011 10:08 AM EST Last visit with NS 06/27/10/ no change in med Bmp pending orders documented in this encounter Plan of Treatment Not on file documented as of this encounter Visit Diagnoses Not on filedocumented in this encounter Care Teams Turn Machine Operator Relationship Specialty Start Date End Date Paulie Martinez MD [address] [place] [address] PCP - General 03/05/06 05/10/17 Paulie Martinez MD [address] [place] [address]11 PCP - General Internal Medicine 05/11/17 06/15/17 Félix Ryan [address] [place] [address] 18331 PCP - General Internal Medicine 06/16/17 09/15/17 Paulie Martinez MD [address] [place] [address] PCP - General Internal Medicine 09/16/17 Arelis Gama MD [address] [place] [address] Specialist Neurosurgery 03/11/21 documented as of this encounter
--- OUTSIDE RECORDS SUMMARY | 2024-11-29 15:19 | XMS_ITS | Encounter Summary ---
Author Organization Leah [employer] [facility] Address [address] [place] [address] Care Team Providers Care Manager Environmental Health Name Role Phone Paulie Martinez MD Primary Care Provider [phone] Arelis Gama MD Unavailable [phone] Encounter Details Date Type Department Care Team Description 11/01/2019 Orders Only Adult Medicine [address] [phone] Paulie Martinez MD [address] [place] [address] [phone] Need for prophylactic vaccination against Streptococcus pneumoniae (pneumococcus) (Primary Dx) Social History Tobacco Use Types Packs/Day Years [...] documented as of this encounter Visit Diagnoses Diagnosis Need for prophylactic vaccination against Streptococcus pneumoniae (pneumococcus)- Primary Need for prophylactic vaccination against streptococcus pneumoniae (pneumococcus) documented in this encounter Care Teams Manager Environmental Health Relationship Specialty Start Date End Date Paulie Martinez MD [address] [place] [address] PCP - General Internal Medicine 09/16/17 Arelis Gama MD [address] [place] [address] [place] [address] Specialist Neurosurgery 03/11/21 documented as of this encounter
--- OUTSIDE RECORDS SUMMARY | 2024-11-29 15:19 | XMS_ITS | Encounter Summary ---
Author Organization [facility] Address [address] [place] [address] Care Team Providers Care Overhead Distribution Engineer Name Role Phone Paulie Martinez MD Primary Care Provider [phone] Arelis Gama MD Unavailable [phone] Encounter Details Date Type Department Care Team Description 06/19/2019 Professor Of Physical Education Report Medical Records [address] [place] [address] Vivienne Thompson NP Social History Tobacco Use Types Packs/Day Years [...] on filedocumented in this encounter Care Teams Overhead Distribution Engineer Relationship Specialty Start Date End Date Paulie Martinez MD [address] [place] [address] PCP - General Internal Medicine 09/16/17 Arelis Gama MD [address] [facility] [address] [place] [address] Specialist Neurosurgery 03/11/21 documented as of this encounter
--- OUTSIDE RECORDS SUMMARY | 2024-11-29 15:20 | XMS_ITS | Encounter Summary ---
Author Organization [facility] Address [address] [place] [address] Care Team Providers Care Nitriles Lab Technician Name Role Phone Paulie Martinez MD Primary Care Provider [phone] Arelis Gama MD Unavailable [phone] Reason for Visit * Reason Onset Date Comments Medication Review 02/11/2018 Encounter Details Date Type Department Care Team Description 02/11/2018 Telephone PHARMACY CLINIC [address] [place] [address] Paulie Martinez MD [address] [place] [address] [phone] Medication Review Social History Tobacco Use Types Packs/Day Years [...] encounter Miscellaneous Notes * Telephone Encounter - Suzi Portillo M.A. - 02/11/2018 10:11 AM EST Med list updated with Lamotrigine 100 mg bid. FYI to pcp * Telephone Encounter - Cely Keller - 02/11/2018 8:52 AM EST Patient is taking lamotrigine 100 mg bid in addition to his other listed medication. Please consider updating. documented in this encounter Plan of Treatment Not on file documented as of this encounter Visit Diagnoses Not on filedocumented in this encounter Care Teams Nitriles Lab Technician Relationship Specialty Start Date End Date Paulie Martinez MD [address] [place] [address] PCP - General Internal Medicine 09/16/17 Arelis Gama MD [address] [place] [address] [place] [address] Specialist Neurosurgery 03/11/21 documented as of this encounter
--- OUTSIDE RECORDS SUMMARY | 2024-11-29 15:20 | XMS_ITS | Encounter Summary ---
Author Organization [facility] Address [address] [place] [address] Care Team Providers Care Science Tutor Name Role Phone Paulie Martinez MD Primary Care Provider [phone] Arelis Gama MD Unavailable [phone] Encounter Details Date Type Department Care Team Description 04/17/2022 Trim Master Operator Report Medical Records [address] [place] [address] Qian Dubois NP Social History Tobacco Use Types Packs/Day [...] on filedocumented in this encounter Care Teams Science Tutor Relationship Specialty Start Date End Date Paulie Martinez MD [address] [place] [address] PCP - General Internal Medicine 09/16/17 Arelis Gama MD [address] [facility] [address] [place] [address] Specialist Neurosurgery 03/11/21 documented as of this encounter
--- OUTSIDE RECORDS SUMMARY | 2024-11-29 15:20 | XMS_ITS | Encounter Summary ---
Author Organization [email or web address] [facility] Address [address] [place] [address] Care Team Providers Care Information Operator Name Role Phone Paulie Martinez MD Primary Care Provider [phone] Arelis Gama MD Unavailable Reason for Visit * Reason Onset Date Comments Faxed Order 09/01/2021 [facility] Encounter Details Date Type Department Care Team Description 09/01/2021 Telephone Adult Medicine [address] [id number] Paulie Martinez MD [address] [place] [address] [phone] Faxed Order ([facility] ) Social History Tobacco Use Types Packs/Day Years [...] suspected to have Coronavirus/COVID-19? No / Unsure 08/19/2021 1:11 PM EDT documented as of this encounter Plan of Treatment Not on file documented as of this encounter Visit Diagnoses Not on filedocumented in this encounter Care Teams Information Operator Relationship Specialty Start Date End Date Paulie Martinez MD [address] [place] [address] PCP - General Internal Medicine 09/16/17 Arelis Gama MD [address] [address] Specialist Neurosurgery 03/11/21 documented as of this encounter
--- OUTSIDE RECORDS SUMMARY | 2024-11-29 15:20 | XMS_ITS | Encounter Summary ---
Author Organization Leah [employer] [facility] Address [address] [place] [address] Care Team Providers Care Electronics Engineering Professor Name Role Phone Paulie Martinez MD Primary Care Provider [phone] Arelis Gama MD Unavailable [phone] Reason for Visit * Reason Onset Date Comments Faxed Order 06/13/2021 [facility] Encounter Details Date Type Department Care Team Description 06/13/2021 Telephone Adult Medicine [address] [phone] Paulie Martinez MD [address] [place] [address] [phone] Fax[facility] Order ([facility] ) Social [...] on filedocumented in this encounter Care Teams Electronics Engineering Professor Relationship Specialty Start Date End Date Paulie Martinez MD [address] [place] [address] [phone] PCP - General Internal Medicine 09/16/17 Arelis Gama MD [address] [place] [address] Specialist Neurosurgery 03/11/21 documented as of this encounter
--- OUTSIDE RECORDS SUMMARY | 2024-11-29 15:20 | XMS_ITS | Encounter Summary ---
Author Organization Leah [facility] Address [address] [place] [address] Care Team Providers Care Web Press Jogger Name Role Phone Paulie Martinez MD Primary Care Provider [phone] Paulie Martinez MD Primary Care Provider [phone] Félix Ryan Primary Care Provider Unav Paulie Looney MD Primary Care Provider [phone] Arelis Gama MD Unavailable [phone] Encounter Details Date Type Department Care Team Description 11/30/2012 Card Grinder Helper Report Medical Records [address] [place] [address] Layo Paul Social History Tobacco Use Types [...] on filedocumented in this encounter Care Teams Web Press Jogger Relationship Specialty Start Date End Date Paulie Martinez MD [address] [place] [address] [phone] PCP - General 03/05/06 05/10/17 Paulie Martinez MD [address] [place] [address] PCP - General Internal Medicine 05/11/17 06/15/17 Félix Ryan [address] [place] [address] PCP - General Internal Medicine 06/16/17 09/15/17 Paulie Martinez MD [address] [place] [address] PCP - General Internal Medicine 09/16/17 Arelis Gama MD [address] [place] [address] Specialist Neurosurgery 03/11/21 documented as of this encounter
--- OUTSIDE RECORDS SUMMARY | 2024-11-29 15:20 | XMS_ITS | Encounter Summary ---
Author Organization [employer] [facility] Address [address] [place] [address] Care Team Providers Care Ultrasound Supervisor Name Role Phone Paulie Martinez MD Primary Care Provider [phone] Paulie Martinez MD Primary Care Provider [phone] Félix Ryan Primary Care Provider Unav ailable Paulie Martinez MD Primary Care Provider Arelis Gama MD Unavailable [phone] Encounter Details Date Type Department Care Team Description 09/25/2016 Orders Only Cardiology - [address] [phone] Jesus Schumacher MD [address] [place] [address] [phone] Other chest pain (Primary Dx) Social History Tobacco Use Types [...] as of this encounter Visit Diagnoses Diagnosis Other chest pain- Primary documented in this encounter Care Teams Ultrasound Supervisor Relationship Specialty Start Date End Date Paulie Martinez MD [address] [place] [address] PCP - General 03/05/06 05/10/17 Paulie Martinez MD [address] [place] [address] PCP - General Internal Medicine 05/11/17 06/15/17 Félix Ryan [address] [place] [address] PCP - General Internal Medicine 06/16/17 09/15/17 Paulie Martinez MD [address] [place] [address] PCP - General Internal Medicine 09/16/17 Arelis Gama MD [address] [place] [address] Specialist Neurosurgery 03/11/21 documented as of this encounter
--- OUTSIDE RECORDS SUMMARY | 2024-11-29 15:20 | XMS_ITS | Encounter Summary ---
Author Organization Leah [employer] [facility] Address [address] [place] [address] Care Team Providers Care Boat Oar Maker Name Role Phone Paulie Martinez MD Primary Care Provider [phone] Arelis Gama MD Unavailable [phone] Encounter Details Date Type Department Care Team Description 11/06/2021 Refill Adult Medicine [address] [address] Nelli Capellan MD Social History Tobacco Use Types Packs/Day [...] suspected to have Coronavirus/COVID-19? No / Unsure 10/24/2021 10:47 AM EDT documented as of this encounter Miscellaneous Notes * Telephone Encounter - Suzi Portillo M.A. - 11/07/2021 8:40 AM EDT Last office visit 10/24/21 Next office visit 05/04/22 Originally given for cough (covid symptoms) 07/12/20 Will you refill? documented in this encounter Plan of Treatment Not on file documented as of this encounter Visit Diagnoses Not on filedocumented in this encounter Care Teams Boat Oar Maker Relationship Specialty Start Date End Date Paulie Martinez MD [address] [place] [address] PCP - General Internal Medicine 09/16/17 Arelis Gama MD [address] [place] [address] [address] [place] [address] Specialist Neurosurgery 03/11/21 documented as of this encounter
--- OUTSIDE RECORDS SUMMARY | 2024-11-29 15:20 | XMS_ITS | Encounter Summary ---
Author Organization [facility] Address [address] [place] [address] Care Team Providers Care Customer Experience Leader Name Role Phone Félix Ryan Primary Care Provider Unav Paulie Looney MD Primary Care Provider [phone] Arelis Gama MD Unavailable [phone] Encounter Details Date Type Department Care Team Description 09/11/2017 Release of Information Medical Records [address] [place] [address] Abstract, Provider Social History Tobacco Use Types [...] on filedocumented in this encounter Care Teams Customer Experience Leader Relationship Specialty Start Date End Date Félix Ryan PCP - General Internal Medicine 06/16/17 09/15/17 Paulie Martinez MD [address] [place] [address] PCP - General Internal Medicine 09/16/17 Arelis Gama MD 175 [facility] [address] [place] [address] Specialist Neurosurgery 03/11/21 documented as of this encounter
--- OUTSIDE RECORDS SUMMARY | 2024-11-29 15:20 | XMS_ITS | Encounter Summary ---
Author Organization Leah [facility] Address [address] [place] [address] Care Team Providers Care Irrigation District Manager Name Role Phone Paulie Martinez MD Primary Care Provider [phone] Paulie Martinez MD Primary Care Provider [phone] Félix Ryan Primary Care Provider Unav ailable Paulie Martinez MD Primary Care Provider [phone] Arelis Gama MD Unavailable [phone] Reason for Visit * Reason Onset Date Comments radiology 03/22/2017 mri testing. Encounter Details Date Type Department Care Team Description 03/22/2017 Telephone MRI - [address] [address] Paulie Martinez MD [address] [place] [address] [phone] radiology (mri testing.) Social History Tobacco Use Types Packs/Day Years [...] encounter Miscellaneous Notes * Telephone Encounter - Paulie Martinez MD - 03/22/2017 2:39 PM EST Creatinine has been ordered * Telephone Encounter - Maldonado Valentin - 03/22/2017 1:05 PM EST Please order a creatinine blood test for [place]? The mri of the brain you order will be done with contrast. ThanksMo Okeefe, Mri Department. documented in this encounter Plan of Treatment Not on file documented as of this encounter Results * (ABNORMAL) BASIC METABOLIC PANEL (03/25/2017 4:37 PM EST) GLUCOSE 103(H) 70 - 100 mg/dL 03/26/2017 12:01 PM EST [facility] Comment: Reference range applicable to fasting specimens only Based on recommendations from the ADA and AACE, the fasting glucose reference range has been changed to 70-100 mg/dL. This change is effective July 22, 2009 BUN 7 5 - 25 mg/dL 03/26/2017 12:01 PM EST [facility] CREAT 0.9 0.7 - 1.5 mg/dL 03/26/2017 12:01 PM EST [facility] GFR > 60 >60 03/26/2017 12:01 PM EST [facility] Comment: If patient is -Scottish, multiply result by 1.21 Chronic Kidney Disease: < 60 ml/min/1.73 square meters Kidney Failure: < 15 ml/min/1.73 square meters Sodium 137 133 - 145 mEq/L 03/26/2017 12:01 PM EST [facility] Potassium 4.8 3.5 - 5.5 mEq/L 03/26/2017 12:01 PM EST [facility] Chloride 99 96 - 108 mEq/L 03/26/2017 12:01 PM EST [facility] CO2 26.4 21.0 - 32.0 mEq/L 03/26/2017 12:01 PM EST [facility] CALCIUM 8.9 8.5 - 10.5 mg/dL 03/26/2017 12:01 PM EST [facility] 03/25/2017 4:37 PM EST 03/25/2017 4:38 PM EST Paulie Martinez MD LAB [facility] [address] [facility] documented in this encounter Visit Diagnoses Diagnosis Encounter for long-term current use of medication- Primary documented in this encounter Care Teams Irrigation District Manager Relationship Specialty Start Date End Date Paulie Martinez MD [address] [place] [address] PCP - General 03/05/06 05/10/17 Paulie Martinez MD [address] [place] [address] PCP - General Internal Medicine 05/11/17 06/15/17 Félix Ryan [address] [place] [address] PCP - General Internal Medicine 06/16/17 09/15/17 Paulie Martinez MD [address] [place] [address] PCP - General Internal Medicine 09/16/17 Arelis Gama MD [address] [place] [address] Specialist Neurosurgery 03/11/21 documented as of this encounter
--- OUTSIDE RECORDS SUMMARY | 2024-11-29 15:20 | XMS_ITS | Encounter Summary ---
Author Organization Leah [employer] [facility] Address [address] [place] [address] Care Team Providers Care Vortex Operator Name Role Phone Paulie Martinez MD Primary Care Provider [phone] Arelis Gama MD Unavailable [phone] Encounter Details Date Type Department Care Team Description 2023 Telephone Gastroenterology - [place] [address] [facility] [address] [place] [address] Cong Paulino PA-C Social History Tobacco Use Types Packs/Day Years [...] encounter Miscellaneous Notes * Telephone Encounter - Sharron Clements M.A. - 2023 8:56 AM EST Spoke with patient the Barium Swallow is Wednesday 8:00a documented in this encounter Plan of Treatment Not on file documented as of this encounter Visit Diagnoses Not on filedocumented in this encounter Care Teams Vortex Operator Relationship Specialty Start Date End Date Paulie Martinez MD [address] [place] [address] PCP - General Internal Medicine 09/16/17 Arelis Gama MD [address] [place] [address] Specialist Neurosurgery 03/11/21 documented as of this encounter
--- OUTSIDE RECORDS SUMMARY | 2024-11-29 15:20 | XMS_ITS | Encounter Summary ---
Author Organization Leah [employer] [facility] Address [address] [place] [address] Care Team Providers Care State Editor Name Role Phone Paulie Martinez MD Primary Care Provider [phone] Paulie Martinez MD Primary Care Provider [phone] Félix Ryan Primary Care Provider Unav Paulie Looney MD Primary Care Provider [phone] Arelis Gama MD Unavailable [phone] Encounter Details Date Type Department Care Team Description 04/12/2017 Crm Consultant Report Medical Records [address] [place] [address] Layo Paul Social History Tobacco Use Types [...] on filedocumented in this encounter Care Teams State Editor Relationship Specialty Start Date End Date Paulie Martinez MD [address] [place] [address] PCP - General 03/05/06 05/10/17 Paulie Martinez MD [address] [place] [address] PCP - General Internal Medicine 05/11/17 06/15/17 Félix Ryan [address] [place] [address] PCP - General Internal Medicine 06/16/17 09/15/17 Paulie Martinez MD [address] [place] [address] PCP - General Internal Medicine 09/16/17 Arelis Gama MD [address] [place] [address] Specialist Neurosurgery 03/11/21 documented as of this encounter
--- OUTSIDE RECORDS SUMMARY | 2024-11-29 15:20 | XMS_ITS | Encounter Summary ---
Author Organization Leah [facility] Address [address] [place] [address] Care Team Providers Care Teleprinter Name Role Phone Paulie Martinez MD Primary Care Provider [phone] Arelis Gama MD Unavailable [phone] Encounter Details Date Type Department Care Team Description 03/22/2018 Hospital Medical Records [address] [place] [address] JuniorSpencer jacob [address] [place] [address], [address]rd [address] [place] [address] Social History Tobacco Use Types Packs/Day Years [...] on filedocumented in this encounter Care Teams Teleprinter Relationship Specialty Start Date End Date Paulie Martinez MD [address] [place] [address] PCP - General Internal Medicine 09/16/17 Arelis Gama MD 175 [facility] [address] [place], [place] 0360604 Specialist Neurosurgery 03/11/21 documented as of this encounter
--- OUTSIDE RECORDS SUMMARY | 2024-11-29 15:20 | XMS_ITS | Encounter Summary ---
Author Organization Leah [employer] [facility] Address [address] [place] [address] Care Team Providers Care Branch Lead Name Role Phone Paulie Martinez MD Primary Care Provider [phone] Arelis Gama MD Unavailable [phone] Encounter Details Date Type Department Care Team Description 11/06/2021 Refill Allergy [place] [address] [place] [address] Md Jay Social History Tobacco Use Types Packs/Day Years [...] AM EDT documented as of this encounter Plan of Treatment Not on file documented as of this encounter Visit Diagnoses Not on filedocumented in this encounter Care Teams Branch Lead Relationship Specialty Start Date End Date Paulie Martinez MD [address] [place] [address] PCP - General Internal Medicine 09/16/17 Arelis Gama MD [address] [place] [address] Specialist Neurosurgery 03/11/21 documented as of this encounter
--- OUTSIDE RECORDS SUMMARY | 2024-11-29 15:20 | XMS_ITS | Encounter Summary ---
Author Organization [facility] Address [address] [place] [address] Care Team Providers Care Mma Fighter Name Role Phone Paulie Martinez MD Primary Care Provider [phone] Paulie Martinez MD Primary Care Provider [phone] Félix Ryan Primary Care Provider Unav Paulie Looney MD Primary Care Provider [phone] Arelis Gama MD Unavailable [phone] Encounter Details Date Type Department Care Team Description 07/19/2013 Character Artist Report Medical Records [address] [place] [address] Layo Paul Social History Tobacco Use Types [...] on filedocumented in this encounter Care Teams Mma Fighter Relationship Specialty Start Date End Date Paulie Martinez MD [address] [place] [address] [phone] PCP - General 03/05/06 05/10/17 Paulie Martinez MD [address] [place] [address] PCP - General Internal Medicine 05/11/17 06/15/17 Félix Ryan [address] [place] [address] PCP - General Internal Medicine 06/16/17 09/15/17 Paulie Martinez MD [address] [place] [address] PCP - General Internal Medicine 09/16/17 Arelis Gama MD [address] [place] [address] Specialist Neurosurgery 03/11/21 documented as of this encounter
--- OUTSIDE RECORDS SUMMARY | 2024-11-29 15:20 | XMS_ITS | Encounter Summary ---
Author Organization [facility] Address [address] [place] [address] Care Team Providers Care Trademark Paralegal Name Role Phone Paulie Martinez MD Primary Care Provider [phone] Arelis Gama MD Unavailable [phone] Reason for Visit * Reason Comments E-prescribe Rx Request Encounter Details Date Type Department Care Team Description 02/11/2018 Refill Adult Medicine [address] [id number] Sol Zheng PA E-prescribe Rx Request Social History Tobacco Use [...] encounter Miscellaneous Notes * Telephone Encounter - Krystle Wetzel C.M.A. - 02/11/2018 10:17 AM EST Lab Results Component Value Date CHOL 149 09/07/2016 LDL 66 09/07/2016 HDL 58 09/07/2016 TRIG 126 09/07/2016 * Telephone Encounter - Aletha Luna - 02/11/2018 9:57 AM EST Patient would like script to be: E-PRESCRIBED/FAXED TO PHARMACY WHEN WAS THE PATIENT'S LAST APPOINTMENT IN ADULT MEDICINE? 12/30/17 WHEN WAS THE LAST TIME THE PATIENT SAW THEIR PCP? 11/30/17 Does patient have an upcoming appointment? Yes 04/18/18 (THE MEDICATION REQUESTED IS ON THE MED LIST ABOVE) All of the medications requested were on the CURRENT MEDS list Did you check the Pharmacy information above?: YES Patient wants: 30 -day supply Is this a mail order prescription request ? NO If the refill is from a FAXED refill request what is the RX # listed on the fax? N/A Patients current insurance carrier is: Payor: [employer] / Plan: [employer] [facility] / Product Type: MEDICAID RISK documented in this encounter Plan of Treatment Not on file documented as of this encounter Visit Diagnoses Not on filedocumented in this encounter Care Teams Trademark Paralegal Relationship Specialty Start Date End Date Paulie Martinez MD [address] [place] [address] PCP - General Internal Medicine 09/16/17 Arelis Gama MD [address] [place] [address] [place] [address] Specialist Neurosurgery 03/11/21 documented as of this encounter
--- OUTSIDE RECORDS SUMMARY | 2024-11-29 15:20 | XMS_ITS | Encounter Summary ---
Author Organization Leah [facility] [facility] Address [address] [place] [address] Care Team Providers Care Stucco Mason Name Role Phone Paulie Martinez MD Primary Care Provider [phone] Paulie Martinez MD Primary Care Provider [phone] Félix Ryan Primary Care Provider Unav ailable Paulie Martinez MD Primary Care Provider [phone] Arelis Gama MD Unavailable Encounter Details Date Type Department Care Team Description 01/06/2017 Manager Operating Report Medical Records [address] [place] [address] Yesi Judge MD Social History Tobacco Use Types Packs/Day [...] on filedocumented in this encounter Care Teams Stucco Mason Relationship Specialty Start Date End Date Paulie Martinez MD [address] [place] [address] PCP - General 03/05/06 05/10/17 Paulie Martinez MD [address] [place] [address] PCP - General Internal Medicine 05/11/17 06/15/17 Félix Ryan [address] [place] [address] PCP - General Internal Medicine 06/16/17 09/15/17 Paulie Martinez MD [address] [place] [address] PCP - General Internal Medicine 09/16/17 Arelis Gama MD [address] [place] [address] Specialist Neurosurgery 03/11/21 documented as of this encounter
--- OUTSIDE RECORDS SUMMARY | 2024-11-29 15:20 | XMS_ITS | Encounter Summary ---
Author Organization [facility] Address [address] [place] [address] Care Team Providers Care Lmsw Name Role Phone Paulie Martinez MD Primary Care Provider Paulie Martinez MD Primary Care Provider [phone] Félix Ryan Primary Care Provider Unav ailable Paulie Martinez MD Primary Care Provider [phone] Arelis Gama MD Unavailable [phone] Encounter Details Date Type Department Care Team Description 11/09/2012 Rock Worker Report Medical Records [address] [place] [address] Placido Preston MD Social History Tobacco Use Types Packs/Day [...] on filedocumented in this encounter Care Teams Lmsw Relationship Specialty Start Date End Date Paulie Martinez MD [address] [place] [address] PCP - General 03/05/06 05/10/17 Paulie Martinez MD [address] [place] [address] PCP - General Internal Medicine 05/11/17 06/15/17 Félix Ryan [address] [place] [address] PCP - General Internal Medicine 06/16/17 09/15/17 Paulie Martinez MD [address] [place] [address] PCP - General Internal Medicine 09/16/17 Arelis Gama MD [address] [place] [address] Specialist Neurosurgery 03/11/21 documented as of this encounter
--- OUTSIDE RECORDS SUMMARY | 2024-11-29 15:20 | XMS_ITS | Encounter Summary ---
Author Organization Leah [facility] Address [address] [place] [address] Care Team Providers Care Operations Professional Name Role Phone Paulie Martinez MD Primary Care Provider [phone] Arelis Gama MD Unavailable [phone] Encounter Details Date Type Department Care Team Description 09/02/2022 Air Tube Releaser Report Medical Records [address] [place] [address] Maximilian Muñoz Social History Tobacco Use Types Packs/Day Years [...] on filedocumented in this encounter Care Teams Operations Professional Relationship Specialty Start Date End Date Paulie Martinez MD [address] [place], [place] [phone] PCP - General Internal Medicine 09/16/17 Arelis Gama MD [address] [facility] [address] [place] [address] Specialist Neurosurgery 03/11/21 documented as of this encounter
--- OUTSIDE RECORDS SUMMARY | 2024-11-29 15:20 | XMS_ITS | Encounter Summary ---
Author Organization Leah [facility] Address [address] [place] [address] Care Team Providers Care Supervisory Air Intercept Controller Name Role Phone Paulie Martinez MD Primary Care Provider [phone] Arelis Gama MD Unavailable [phone] Reason for Visit * Reason Onset Date Comments Faxed Order 06/02/2021 Encounter Details Date Type Department Care Team Description 06/02/2021 Telephone Adult Medicine [address] [phone] Paulie Martinez MD [address] [place] [address] [phone] Faxed Order Social History Tobacco Use Types Packs/Day Years [...] encounter Miscellaneous Notes * Telephone Encounter - Germaine Kim - 06/02/2021 2:08 PM EDT Faxed order from [facility]. Visit date 04/30/21. Please sign, date, and fax back. documented in this encounter Plan of Treatment Not on file documented as of this encounter Visit Diagnoses Not on filedocumented in this encounter Care Teams Supervisory Air Intercept Controller Relationship Specialty Start Date End Date Paulie Martinez MD [address] [place] [address] PCP - General Internal Medicine 09/16/17 Arelis Gama MD [address] [place] [address] Specialist Neurosurgery 03/11/21 documented as of this encounter
--- OUTSIDE RECORDS SUMMARY | 2024-11-29 15:20 | XMS_ITS | Encounter Summary ---
Author Organization Leah [facility] Address [address] [place] [address] Care Team Providers Care Road Commissioner Name Role Phone Paulie Martinez MD Primary Care Provider [phone] Paulie Martinez MD Primary Care Provider [phone] Félix Ryan Primary Care Provider Unav Paulie Looney MD Primary Care Provider [phone] Arelis Gama MD Unavailable [phone] Encounter Details Date Type Department Care Team Description 10/28/2016 Surveyor Hydrographic Report Medical Records [address] [place] [id number] Abstract, Provider Social History Tobacco Use Types [...] on filedocumented in this encounter Care Teams Road Commissioner Relationship Specialty Start Date End Date Paulie Martinez MD [address] [place] [address] PCP - General 03/05/06 05/10/17 Paulie Martinez MD [address] [place] [address]365 PCP - General Internal Medicine 05/11/17 06/15/17 Félix Ryan [address] [place] [address] PCP - General Internal Medicine 06/16/17 09/15/17 Paulie Martinez MD [address] [place] [address] PCP - General Internal Medicine 09/16/17 Arelis Gama MD [address] [place] [address] Specialist Neurosurgery 03/11/21 documented as of this encounter
--- OUTSIDE RECORDS SUMMARY | 2024-11-29 15:20 | XMS_ITS | Encounter Summary ---
Author Organization Leah [facility] Address [address] [place] [address] Care Team Providers Care Client Representative Name Role Phone Paulie Martinez MD Primary Care Provider [phone] Arelis Gama MD Unavailable Encounter Details Date Type Department Care Team Description 07/23/2020 Tutoring Manager Report Medical Records [address] [place] [address] Ruth Vargas MD Social History Tobacco Use Types Packs/Day [...] on filedocumented in this encounter Care Teams Client Representative Relationship Specialty Start Date End Date Paulie Martinez MD [address], [place] [phone] PCP - General Internal Medicine 09/16/17 Arelis Gama MD [address] [facility] [address] [place] [address] Specialist Neurosurgery 03/11/21 documented as of this encounter
--- OUTSIDE RECORDS SUMMARY | 2024-11-29 15:20 | XMS_ITS | Encounter Summary ---
Author Organization Leah [facility] [employer] [facility] Address [address] [place] [address] Care Team Providers Care Gel Coat Sprayer Name Role Phone Paulie Martinez MD Primary Care Provider Paulie Martinez MD Primary Care Provider [phone] Félix Ryan Primary Care Provider Unav Paulie Looney MD Primary Care Provider [phone] Arelis Gama MD Unavailable [phone] Encounter Details Date Type Department Care Team Description 09/05/2012 Therapy Site Coordinator Report Medical Records [address] [place] [address] Layo Paul Social History Tobacco Use Types [...] on filedocumented in this encounter Care Teams Gel Coat Sprayer Relationship Specialty Start Date End Date Paulie Martinez MD [address] [place] [address] [phone] PCP - General 03/05/06 05/10/17 Paulie Martinez MD [address] [place] [address] PCP - General Internal Medicine 05/11/17 06/15/17 Félix Ryan [address] [place] [id number] PCP - General Internal Medicine 06/16/17 09/15/17 Paulie Martinez MD [address] [place] [address] PCP - General Internal Medicine 09/16/17 Arelis Gama MD [address] [place] [address] Specialist Neurosurgery 03/11/21 documented as of this encounter
--- OUTSIDE RECORDS SUMMARY | 2024-11-29 15:20 | XMS_ITS | Encounter Summary ---
Author Organization Leah [facility] Address [address] [place] [address] Care Team Providers Care Counter Supply Worker Name Role Phone Paulie Martinez MD Primary Care Provider [phone] Arelis Gama MD Unavailable [phone] Encounter Details Date Type Department Care Team Description 11/26/2020 Lathe Operator Contact Lens Report Medical Records [address] [place] [address] Ruth Vargas MD Social History Tobacco Use [...] or suspected to have Coronavirus / COVID-19? Unable to assess 10/29/2020 2:09 PM EDT documented as of this encounter Plan of Treatment Not on file documented as of this encounter Visit Diagnoses Not on filedocumented in this encounter Care Teams Counter Supply Worker Relationship Specialty Start Date End Date Paulie Martinez MD [address] [place] [address] PCP - General Internal Medicine 09/16/17 Arelis Gama MD [address] [place] [address] [place] [address] Specialist Neurosurgery 03/11/21 documented as of this encounter
--- OUTSIDE RECORDS SUMMARY | 2024-11-29 15:20 | XMS_ITS | Encounter Summary ---
Author Organization Leah [facility] Address [address] [place] [address] Care Team Providers Care Accounts Payable Coordinator Name Role Phone Paulie Martinez MD Primary Care Provider Paulie Martinez MD Primary Care Provider [phone] Félix Ryan Primary Care Provider Unav Paulie Looney MD Primary Care Provider [phone] Arelis Gama MD Unavailable [phone] Encounter Details Date Type Department Care Team Description 01/26/2017 [facility] Medical Records [address] [place] [address] Abstract, Provider Social History Tobacco Use Types [...] on filedocumented in this encounter Care Teams Accounts Payable Coordinator Relationship Specialty Start Date End Date Paulie Martinez MD [address] [place] [address] PCP - General 03/05/06 05/10/17 Paulie Martinez MD [address] [place] [address] PCP - General Internal Medicine 05/11/17 06/15/17 [employer]ix Ryan [address] [place] [address] PCP - General Internal Medicine 06/16/17 09/15/17 Paulie Martinez MD [address] [place] [address] PCP - General Internal Medicine 09/16/17 Arelis Gama MD [address] [place] [address] Specialist Neurosurgery 03/11/21 documented as of this encounter
--- OUTSIDE RECORDS SUMMARY | 2024-11-29 15:20 | XMS_ITS | Encounter Summary ---
Author Organization Leah [facility] Address [address] [place] [address] Care Team Providers Care Python Architect Name Role Phone Paulie Martinez MD Primary Care Provider [phone] Arelis Gama MD Unavailable [phone] Encounter Details Date Type Department Care Team Description 06/09/2021 Gas Generator Operator Report Medical Records [address] [place] [address] [id number] Social History Tobacco Use Types Packs/Day Years [...] on filedocumented in this encounter Care Teams Python Architect Relationship Specialty Start Date End Date Paulie Martinez MD [address] [place] [address] PCP - General Internal Medicine 09/16/17 Arelis Gama MD [address] [facility] [address] [place], [place] [phone] Specialist Neurosurgery 03/11/21 documented as of this encounter
== END 2024-11-29 14:07 | disposition home or self-care (01) ==
LOC: HO.HSMS 12:53
PROVIDERS: PCP Internal Medicine; Visit Provider Nurse Practitioner Family
DX: G20.A2 Parkinson's disease without dyskinesia, with fluctuations (principal); Z86.69 Personal history of other diseases of the nervous system and sense organs; R26.9 Unspecified abnormalities of gait and mobility; R41.3 Other amnesia; R13.10 Dysphagia, unspecified
CPT/HCPCS: 99214; G2211

== ENCOUNTER → 2024-11-29 12:53 | Outpatient (BNVA) | payer MEDICARE, MEDICAID, SELFPAY | PROVIDERS: PCP Internal Medicine; Visit Provider Nurse Practitioner Family | DX: G20.A2 Parkinson's disease without dyskinesia, with fluctuations (principal); R26.9 Unspecified abnormalities of gait and mobility; R41.3 Other amnesia; R13.10 Dysphagia, unspecified; Z86.69 Personal history of other diseases of the nervous system and sense organs | CPT/HCPCS: 99212 ==

== ENCOUNTER 2025-01-23 14:30 | Outpatient (REF) | payer MEDICARE, MEDICAID, SELFPAY ==
--- NOTE | ~2025-01-23 | FL_ITS ---
EXAMINATION: MODIFIED BARIUM SWALLOW CLINICAL INFORMATION: Dysphagia COMPARISON: None available. TECHNIQUE: Patient swallowed liquids and solids of varying consistency. FINDINGS: Study performed by speech pathologist. Patient swallowed liquids and solids of varying consistency. There is laryngeal penetration noted with liquids. FLUOROSCOPY TIME: 2.15 minutes DOSE AREA PRODUCT: 77 uGy-m2 (microgray-meter squared) FL/FL Modified Barium Swallow IMPRESSION: Modified Barium Swallow . There is laryngeal penetration with liquids. See speech pathologist report for details. Electronically signed by: Segun Melgoza MD 01/23/2025 04:34 PM [facility]
--- OUTSIDE RECORDS SUMMARY | 2025-01-24 12:15 | XMS_ITS | Clinical Summary ---
Author Organization [address] Address [address] [place] [phone] Phone Care Team Providers Care Packing House Laborer Name Role Phone Paulie Martinez MD Primary Care Provider [phone] Allergies Active Allergy Reactions Criticality Noted Date [...] Capsule by mouth at bedtime. 4 Active carbidopa-levodop a (SINEMET) 25-100 mg per tablet Take 1 [...] by mouth at bedtime. - Oral Active carbidopa-levodop a (SINEMET) 25-100 mg per tablet Active omeprazole [...] TABLET BY MOUTH TWICE DAILY Active lisinopriL (PRINIVIL,ZESTRIL ) 20 mg tablet Take 1 Tablet by [...] 5 Active senna-docusate (PERICOLACE) 8.6-50 mg per tabletIndications :Constipation, unspecified constipation type Take 2 tablets by [...] DAILY 90 tablet 1 5 Active lisinopriL (PRINIVIL,ZESTRIL ) 20 mg tablet Take 1 tablet (20 [...] a day. 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, [facility] V28) 2024 GERD (gastroesophageal reflux disease) Dysphagia 03/15/2024 Diverticulosis 03/15/2024 Hepatic steatosis 03/15/2024 Lipoma of abdominal wall 03/15/2024 Renal cyst 03/15/2024 Benign prostatic hyperplasia 03/15/2024 Polyneuropathy 03/15/2024 Chronic neck pain 03/15/2024 Parkinson disease ([facility] V24, [facility] V28) 10/2024 Bipolar affective ([facility] V24, [facility] V28) 10/2024 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 Cervical spondylosis 03/15/2024 Perennial allergic rhinitis 03/15/2024 Allergic conjunctivitis of both eyes 03/15/2024 Positive PPD 03/15/2024 Chest pain 03/15/2024 Recurrent sinus infections 03/15/2024 Abnormality of immune system 03/15/2024 HTN (hypertension) 12/08/2023 Assessment & Plan (06/05/2024 8:31 AM EDT): Orders: Comprehensive metabolic panel; Future Cervical disc displacement 12/08/2023 Parkinson's disease ([facility] V24, [facility] V28) 1 Assessment & Plan (06/05/2024 8:31 [...] Overview (12/08/2023): Last Assessment & Plan: Mr. Gonazlez has had 2 weeks of physical therapy [...] treatment. 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 Dysphagia 09/03/2008 Overview (12/08/2023): EGD and esophageal bx 09/03/2008: Esophageal biopsies were normal. Polyneuropathy 09/06/2007 Benign prostatic hyperplasia 03/24/2006 Overview (12/08/2023): Follows with urology. Encounters Date Type Department Care Team Description 12/12/2024 3:19 PM EDT - 12/12/2024 6:22 PM EDT Emergency [facility] [address] [place] [address] Vertigo (Primary Dx); Benign paroxysmal positional vertigo, unspecified laterality Discharge Disposition: Home or Self Care 12/11/2024 Telephone Adult Medicine [address] [phone] Melony ChandraeLILLIE 11/30/2024 Telephone Adult Medicine [address] [phone] Paulie Martinez MD 11/01/2024 Telephone Adult [address] [phone] Paulie Martinez MD 10/31/2024 1:00 PM EDT Office Visit [address] [phone] Paulie Martinez MD Sore throat (Primary Dx); Dysphagia, unspecified type; Glands swollen; Parkinson's disease, unspecified whether dyskinesia present, unspecified whether manifestations fluctuate ([facility] V24, [facility] V28) 10/30/2024 Nurse Triage [address] [phone] Paulie Martinez MD from Last 3 Months Immunizations Immunization Administration Dates Next Due Influenza Quadravalent, 0.5m [...] mRNA, LNP-S, preservative free 09/15/2021,09/15/2021,01/22/2021,01/22,06/20/2020,06/20/2020,05/23/2020 ,05/23/2020 Novel [id number] 12/08/2022,03/09,04/03/2020,11/30,12/14/2016 Pneumococcal conjugate 13 va lent (Prevnar 13, PCV13) 2mo and older 11/01/2019,11/01/2019 Pneumococcal polysaccharide 23 valent (Pneumovax 23) 2yo and older 05/04/2022,05/04/2022,12/26/2020,10/18,10/18/2013 Td Tetanus diptheria (Tdvax) 7yo and older 05/04/2022,05/04/2022 Tdap Tetanus diptheria acell ular pertussis (Boostrix; Adacel) 7yo and older 05/14/2008,05/14/2008 Surgical History Surgery Date Site/Laterality Comments OTHER SURGICAL HISTORY PROCEDURE: UT ARTHRD PST/PSTLAT TQ 1NTRSPC CRV BELW C2 SEGMENT OTHER SURGICAL HISTORY JUNE 2008 PROCEDURE: UT TRURL ELECTROSURG RESCJ PROSTATE BLEED COMPLETE; COMMENT: laser TURP by Dr Omalley OTHER SURGICAL HISTORY 04/06/12 PROCEDURE: UT TRURL ELECTROSURG RESCJ PROSTATE BLEED COMPLETE; COMMENT: Dr Paul - bladder outlet obstruction OTHER SURGICAL HISTORY 2012 PROCEDURE: UT ESOPHAGOSCOPY FLEXIBLE TRANSORAL DIAGNOSTIC; COMMENT: normal OTHER SURGICAL HISTORY 2012 PROCEDURE: UT DILATION ESOPH UNGUIDED SOUND/BOUGIE 1/MULT PASS; COMMENT: size 50 Fr ESOPHAGOGASTRODUODENOSCOPY 09/03/2008 PROCEDURE: UT EGD TRANSORAL BIOPSY SINGLE/MULTIPLE; COMMENT: distal esophageal bx: Esophageal biopsies were normal. HERNIA REPAIR PROCEDURE: HISTORICAL HERNIA REPAIR/UMB HERNIA REPAIR Bilateral PROCEDURE: HISTORICAL HERNIA REPAIR/ING COLONOSCOPY 09/03/2008 PROCEDURE: HISTORICAL COLONOSCOPY; COMMENT: Normal OTHER SURGICAL HISTORY 03/22/2018 PROCEDURE: UT ESOPHAGEAL MOTILITY STUDY W/INTERP&RPT; COMMENT: [facility] - normal Medical History Medical History Date Comments Essential hypertension, benign D X:Essential hypertension, benign Cervical disc displacement DX:Ce rvical disc displacement GERD (gastroesophageal reflux disease) DX:GERD (gastroesophageal reflux disease) Dysphagia 09/03/2008 DX:Dysphagia [...] Sign Reading Time Taken Comments Blood Pressure 126/82 12/12/2024 5:08 PM EDT Pulse 80 12/12/2024 5:08 PM EDT Temperature 36.9 C (98.5 F) 12/12/2024 5:08 PM EDT Respiratory Rate 16 12/12/2024 5:08 PM EDT Oxygen Saturation 98% 12/12/2024 5:08 PM EDT Inhaled Oxygen Concentration - - Weight 61.2 kg (135 lb) 12/12/2024 1:27 PM EDT Height 167.6 cm (5' 6 ) 12/12/2024 1:27 PM EDT Body Mass Index 21.79 12/12/2024 1:27 PM EDT Plan of Treatment Upcoming Encounters Date Type Department Care Team (Late st Contact Info) Description 02/16/2025 1:15 PM EST Office Visit Adult Medicine [place] - [address] [phone] Paulie Martinez MD [address] [place] [phone] 08/30/2025 2:30 PM EDT Office Visit Nephrology - [address] [phone] Dalton Garcia MD [facility] [address] [phone] Health Maintenance Due Date Last Done Comments Zoster Vaccines (1 of 2) 1972 RSV Immunization Adult Patients (1 - Risk 50-74 years 1-dose series) 2003 Abdominal Aortic Aneurysm (AAA) Screen 02/14/2022 Social Influencers of Health Screening 02/14/2022 COVID-19 Vaccine ( season) 2024 09/15/2021, 09/15/2021, 01/22/2021, Additional history exists Influenza Vaccine (#1) 2024 , 12/08/2022, 03/09/2022, Additional history exists Falls Risk Assessment 06/05/2025 06/05/2024 , 06/05/2024, 06/03/2023, Additional history exists Medicare Annual Wellness Visit 06/05/2025 06/05/2024 Hypertension/CHF/CAD Annual BMP Blood Test 12/12/2025 12/12/2024, 10/31/2024, 06/08/2024, Additional history exists Colorectal Cancer Screening: Colonoscopy [...] Procedure Name Priority Date/Time Associated Diagnosis Comments ECG ANNOTATED 12/13/2024 TROPONIN I HIGH SENSITIVITY Timed 12/12/2024 5:06 PM EDT ECG 12-LEAD STAT 12/12/2024 3:41 PM EDT TROPONIN I HIGH SENSITIVITY Timed 12/12/2024 3:35 PM EDT CBC WITH AUTO DIFFERENTIAL STAT 12/12/2024 1:43 PM EDT MAGNESIUM STAT 12/12/2024 1:43 PM EDT BASIC METABOLIC PANEL STAT 12/12/2024 1:43 PM EDT CBC AND DIFFERENTIAL STAT 12/12/2024 1:43 PM EDT CULTURE THROAT Routine 10/31/2024 2:17 PM EDT [...] Routine 10/31/2024 1:53 PM EDT Pure hypercholesterolemia DEPRESSION SCREENING Routine 06/03/2023 FALLS RISK ASSESSMENT Routine 06/03/2023 COLONOSCOPY Routine 09/10/2016 HEPATITIS C SCREENING Routine 10/18/2013 from Last 3 Months or Most Recently Relevant to Health Maintenance Results * ECG-Annotated (12/13/2024) us Provider Onbase MD ECG ORDERABLES Final Result * Troponin I high sensitivity (12/12/2024 5:06 PM EDT) Only the most recent of2 resultswithin the time period is included. High Sensitivity Troponin I 4 <=79 ng/L LAB CHEMISTRY METHOD 12/12/2024 5:59 PM EDT [facility] Blood Venous blood specimen / Unknown Venipuncture / Unknown 12/12/2024 5:06 PM EDT 12/12/2024 5:23 PM EDT Narrative [facility] - 12/12/2024 5:59 PM EDT High levels of biotin in samples may falsely decrease hsTroponin values. Use caution when interpreting hsTroponin results in patients taking biotin who exhibit renal impairment (eGFR <60) or in patients taking more than 20 mg/day of biotin. [place] [facility] LAB BLOOD ORDERABLES Jennifer l Result Performing Organization Address [facility]/ZIP Co de Phone Number [facility] [address] [place] [address], [place] [phone] * ECG 12 lead (12/12/2024 3:41 PM EDT) Ventricular Rate ECG 81 BPM GEMUSE Atrial Rate 81 BPM GEMUSE P-R Interval 134 ms GEMUSE QRS Duration 86 ms GEMUSE Q-T Interval 382 ms GEMUSE QTc 443 ms GEMUSE P Wave [place] 21 degrees GEMUSE R [place] 31 degrees GEMUSE T [place] 16 degrees GEMUSE ECG Interpretation Normal sinus rhythm Normal ECG When compared with ECG of 05-SEP-2016 07:46, No significant change was found Confirmed by MD Jose, Bo ([id number]) on 12/13/2024 11:06:06 AM GEMUSE 12/12/2024 3:41 PM EDT 12/13/2024 11:06 AM EDT [place] FULLER ECG ORDERABLES Final Res ult Performing Organization Address [facility]/ZIP Co de Phone Number GEMUSE * (ABNORMAL) CBC auto differential (12/12/2024 1:43 PM EDT) Only the most recent of2 resultswithin the time period is included. WBC 6.1 4.8 - 10.8 K/[facility] LAB HEMETOLOGY METHOD 12/12/2024 2:04 PM EDT [facility] RBC 4.10(L) 4.50 - 5.50 M/mcL LAB HEMETOLOGY METHOD 12/12/2024 2:[facility] Hemoglobin 12.4(L) 13.5 - 17.5 g/dL LAB HEMETOLOGY METHOD 12/12/2024 2:04 PM [facility] Hematocrit 35.4(L) 42.0 - 54.0 % LAB HEMETOLOGY METHOD 12/12/2024 2:04 PM [facility] MCV 86.8 79.0 - 98.0 FL LAB HEMETOLOGY METHOD 12/12/2024 2:04 PM [facility] MCH 30.4 27.0 - 32.0 pcg LAB HEMETOLOGY METHOD 12/12/2024 2:04 PM [facility] MCHC 35.0 32.0 - 37.0 g/dL LAB HEMETOLOGY METHOD 12/12/2024 2:04 PM [facility] RDW 12.2 11.0 - 15.0 % LAB HEMETOLOGY METHOD 12/12/2024 2:04 PM [facility] Platelets 183 130 - 400 K/mcL LAB HEMETOLOGY METHOD 12/12/2024 2:04 PM [facility] MPV 8.5 7.0 - 11.0 FL LAB HEMETOLOGY METHOD 12/12/2024 2:04 PM [facility] NRBC 0.0 <1.0 % LAB HEMETOLOGY METHOD 12/12/2024 2:04 PM [facility] NRBC Absolute 0.00 <0.10 K/mcL LAB HEMETOLOGY METHOD 12/12/2024 2:04 PM [facility] Neutrophils Relative 67.4 % LAB HEMETOLOGY METHOD 12/12/2024 2:04 PM [facility] Lymphocytes Relative 23.9 % LAB HEMETOLOGY METHOD 12/12/2024 2:04 PM EDT [facility] Monocytes Relative 7.2 % LAB HEMETOLOGY METHOD 12/12/2024 2:04 PM [facility] Eosinophils Relative 0.5 % LAB HEMETOLOGY METHOD 12/12/2024 2:04 PM [facility] Basophils Relative 0.8 % LAB HEMETOLOGY METHOD 12/12/2024 2:04 PM [facility] Immature Granulocytes Relative 0.2 % LAB HEMETOLOGY METHOD 12/12/2024 2:04 PM [facility] Neutrophils Absolute 4.13 1.50 - 7.00 K/mcL LAB HEMETOLOGY METHOD 12/12/2024 2:04 PM [facility] Lymphocytes Absolute 1.46 1.00 - 5.00 K/mcL LAB HEMETOLOGY METHOD 12/12/2024 2:04 PM [facility] Monocytes Absolute 0.44 0.20 - 1.00 K/mcL LAB HEMETOLOGY METHOD 12/12/2024 2:04 PM [facility] Eosinophils Absolute 0.03 0.00 - 0.50 K/mcL LAB HEMETOLOGY METHOD 12/12/2024 2:04 PM [facility] Basophils Absolute 0.05 0.00 - 0.20 K/mcL LAB HEMETOLOGY METHOD 12/12/2024 2:04 PM [facility] Immature Granulocytes Absolute 0.01 0.00 - 0.03 K/mcL LAB HEMETOLOGY METHOD 12/12/2024 2:04 PM [facility] Blood Venous blood specimen / Unknown Venipuncture / Unknown 12/12/2024 1:43 PM EDT 12/12/2024 1:56 PM EDT [place] [facility] LAB BLOOD ORDERABLES Jennifer l Result Performing Organization Address City/[facility]/ZIP Co de Phone Number [facility] [address] [place] [address], [place] [phone] * Magnesium (12/12/2024 1:43 PM EDT) [facility] Magnesium 2.3 1.9 - 2.6 mg/dL LAB CHEMISTRY METHOD 12/12/2024 2:27 PM EDT [facility] Blood Venous blood specimen / Unknown Venipuncture / Unknown 12/12/2024 1:43 PM EDT 12/12/2024 1:56 PM EDT [place] [facility] LAB BLOOD ORDERABLES Jennifer l Result Performing Organization Address [facility] de Phone Number [facility] [address] [place] [address], [place] [phone] * (ABNORMAL) Basic metabolic panel (12/12/2024 1:43 PM EDT) Only the most recent of2 resultswithin the time period is included. [facility] Sodium 136 133 - 145 mmol/L LAB CHEMISTRY METHOD 12/12/2024 2:27 PM [facility] Potassium 4.0 3.5 - 5.5 mmol/L LAB CHEMISTRY METHOD 12/12/2024 2:27 PM [facility] Chloride 103 96 - 110 mmol/L LAB CHEMISTRY METHOD 12/12/2024 2:27 PM [facility] CO2 26 21 - 32 mmol/L LAB CHEMISTRY METHOD 12/12/2024 2:27 PM [facility] Anion Gap 7 3 - 11 LAB CHEMISTRY METHOD 12/12/2024 2:27 PM [facility] Glucose 103(H) 70 - 100 mg/dL LAB CHEMISTRY METHOD 12/12/2024 2:27 PM [facility] BUN 19 5 - 25 mg/dL LAB CHEMISTRY METHOD 12/12/2024 2:27 PM EDT [facility] Creatinine 1.13 0.70 - 1.30 mg/dL LAB CHEMISTRY METHOD 12/12/2024 2:27 PM EDT [facility] eGFR 69 >=60 mL/min/1. 73m2 LAB CHEMISTRY METHOD 12/12/2024 2:27 PM EDT [facility] Comment:Calculation based on the Chronic Kidney Disease Epidemiology Collaboration (CKD-EPI) equation refit without adjustment for race. BUN/Creatinine Ratio 16.8 LAB CHEMISTRY METHOD 12/12/2024 2:27 PM EDT [facility] Calcium 9.1 8.5 - 10.5 mg/dL LAB CHEMISTRY METHOD 12/12/2024 2:27 PM EDT [facility] Blood Venous blood specimen / Unknown Venipuncture / Unknown 12/12/2024 1:43 PM EDT 12/12/2024 1:56 PM EDT us [place] [facility] LAB BLOOD ORDERABLES Jennifer l Result [facility] [address] [place] [address], [place] [phone] * Culture throat (10/31/2024 2:17 PM EDT) Culture, Throat No pathogens isolated. 11/02/2024 10:13 AM EDT [facility] Swab Structure of anterior region of neck / Unknown Non-blood Collection / Unknown 10/31/2024 2:17 PM EDT 10/31/2024 2:17 PM EDT us Paulie Martinez MD LAB MICROBIOLOGY - GENERAL GABBY LOCKE Final Result [facility] [address] [place] [address], [place] [phone] * POC rapid strep A manually resulted (10/31/2024 2:04 PM EDT) Swab Structure of anterior region of neck / Unknown 10/31/2024 2:04 PM EDT us Paulie Martinez MD POINT OF CARE TEST ENTER/EDIT O RDERABLES Final Result * Lipid panel with reflex to direct LDL (10/31/2024 1:53 PM EDT) Cholesterol 133 0 - 200 mg/dL LAB CHEMISTRY METHOD 10/31/2024 5:32 PM EDT [facility] Triglycerides 106 0 - 150 mg/dL LAB CHEMISTRY METHOD 10/31/2024 5:32 PM EDT [facility] HDL 55 >=40 mg/dL LAB CHEMISTRY METHOD 10/31/2024 5:32 PM EDT [facility] LDL Calculated 57 0 - 100 mg/dL LAB CHEMISTRY METHOD 10/31/2024 5:32 PM EDT [facility] Comment:Estimated LDL Calcul ated using equation: Total cholesterol - HDL cholesterol - (Triglycerides/5) VLDL Cholesterol Prakash 21.2 mg/dL LAB CHEMISTRY METHOD 10/31/2024 5:32 PM EDT [facility] Non HDL Chol. (LDL+VLDL) 78 <145 mg/dL LAB CHEMISTRY METHOD 10/31/2024 5:32 PM EDT [facility] Chol/HDL Ratio 2.4 0.0 - 4.4 LAB CHEMISTRY METHOD 10/31/2024 5:32 PM EDT [facility] Blood Venous blood specimen / Unknown Venipuncture / Unknown 10/31/2024 1:53 PM EDT 10/31/2024 1:53 PM EDT us Paulie Martinez MD LAB BLOOD ORDERABLES Final Resu lt [facility] [address] [place] [address], * Falls Risk Assessment (06/03/2023) Pathologist [facility] Falls Risk Assessment abstracted Historical Provider HEALTH MAINTENANCE Final Result * Depression Screening (06/03/2023) Pathologist [facility] HM Depression Screening abstracted Historical Provider HEALTH MAINTENANCE Final Result * Colonoscopy (09/10/2016) Pathologist [facility] Colonoscopy no interpretation , abstracted Anatomical Region Laterality Modality Other Historical Provider HEALTH MAINTENANCE Final Result * Hepatitis C Screening (10/18/2013) Pathologist [facility] Hepatitis C Screening abstracted Historical Provider HEALTH MAINTENANCE Final Result from Last 3 Months or Most Recently Relevant to Health Maintenance Insurance [place] Advance Directives * Full Code - Confirmed (Latest Code Status on File) Date Activated Date Inactivated Comments 06/05/2024 8:15 AM 12/12/2024 1:[address] [facility] was ascertained in the following way: Code status discussion: discussion with patient To update the patient's code status, place a code status order. Do not modify or discontinue any currently active code status orders. Care Teams Packing House Laborer Relationship Specialty Start Date End Date Paulie Martinez MD [address] [place] [phone] PCP - General Internal Medicine 01/26/24
--- OUTSIDE RECORDS SUMMARY | 2025-01-24 12:15 | XMS_ITS | Clinical Summary ---
Author Organization [employer] [facility] Address [address] [place] [address] Care Team Providers Care Senior Instrumentation Engineer Name Role Phone Paulie Martinez MD Primary Care Provider [phone] Social History Tobacco Use Types Packs/Day Years [...] age to complete this topic Care Teams Senior Instrumentation Engineer Relationship Specialty Start Date End Date Paulie Martinez MD PCP - General Internal Medicine 01/27/21
--- NOTE | 2025-01-25 12:41 | MHC.SL.IMP ---
Date of Plan of Treatment: 01/23/25 Onset of Symptoms/Illness: 11/30/24 Date Treatment Started: 01/23/25 Admitting Diagnosis: Parkinson's disease Primary Speech & Language Diagnosis: R13.12 Oropharyngeal Phase Dysphagia Reason for Today's Visit: 73249 Modified Barium Swallow Study Pre-evaluation Dietary Consistencies: Regular Pre-evaluation Liquid Consistency: Thin Pre-evaluation Medication Administration: Whole with Liquid Medical History: Modified Barium Swallow Study Fluoroscopic Evaluation of Swallowing Function CPT Code 18765 Evaluation Year: 2024 Reason for Study: Patient reports food feels stuck Referring Physician: Amaya VILLARREAL Evaluating Clinician: Floresita Gonzalez MA, CCC-DIVISIONAL HUMAN RESOURCES DIRECTOR Study Number: 1 Patient Name: Shepherd Carlos Status: Outpatient, Ambulatory Age: 69 Sex: Male Medical History Medical History (Updated 11/29/24 @ 14:03 by PHIL Bernard) Parkinson's disease Cervical myelopathy Chorea Social anxiety disorder ADD (attention deficit disorder) Kidney disease HTN (hypertension) Depression Arthritis Surgical History History of back surgery Current (pre-evaluation) Intake/Diet: Route: PO Diet Grade: Regular Liquid Consistencies: Thin Pre-Study Functional Oral Intake Scale (FOIS): 7- Total oral intake with no restrictions Pain: None reported at time of study SUBJECTIVE: Patient is a 69 year old male with Parkinson?s disease referred for a modified barium swallow study (MBSS) by the Neurology and Sleep office. Patient reports reflux symptoms and sometimes having difficulty swallowing solid foods. Patient describes for the past few months feeling food get stuck above his Leo?s apple and liquids going down the ?wrong pipe.? Patient denied pain with swallowing. Oral Motor Exam Facial Symmetry: Symmetrical Mouth Occlusion: Normal Oral-Facial Teeth Characteristics: Partially Missing Oral-Facial Lip Pucker Description: Normal Oral-Facial Smile (Lips) Description: Normal Oral-Facial Puff Cheeks Description: Normal Tongue Size: Normal Tongue Excursion Description: Normal Tongue Range of Movement Description: Normal Tongue Speed of Movement Description: Normal Tongue Strength of Movement (against opposing pressure): Normal Tongue Movement Characteristics: Normal/Absent Food and Liquid Trials: Oral Impairment: Lip Closure: 1=Interlabial escape; no progression to anterior tip Oral Impairment: Tongue Control During Bolus Hold: 2=Posterior escape of less than half of bolus Oral Impairment: Bolus Preparation/Mastication: 1=Slow prolonged chewing/mashing with complete re-collection Oral Impairment: Bolus Transport/Lingual Motion: 2=Slowed tongue motion Oral Impairment: Oral Residue: 2=Residue collection on oral structures Oral Impairment:Initiation of Pharyngeal Swallow: 3=Bolus head in pyriforms Pharyngeal Impairment: Soft Palate Elevation: 0=No bolus between soft palate (SP)/pharyngeal wall (PW) Pharyngeal Impairment: Laryngeal Elevation: 0=Complete superior movement of thyroid cartilage (see description) Pharyngeal Impairment: Anterior Hyoid Excursion: 1=Partial anterior movement Pharyngeal Impairment: Epiglottic Movement: 1=Partial inversion Pharyngeal Impairment: Laryngeal Vestibular Closure:: 1=Incomplete: narrow column air/contrast in laryngeal vestibule Pharyngeal Impairment: Pharyngeal Stripping Wave: 0=Present: complete Pharyngeal Impairment: Pharyngeal Contraction: Did not test Pharyngeal Impairment: Pharyngoesophageal Segment Openin=Partial distention/partial duration: partial obstruction of flow Pharyngeal Impairment: Tongue Base (TB) Retraction: 2=Narrow column of contrast/air between TB and posterior PW Pharyngeal Impairment: Pharyngeal Residue: 2=Collection of residue within or on pharyngeal structures Pharyngeal Impairment: Esophageal Clearance Upright Position: Did not test Impressions and Recommendations OBJECTIVE: Time-out: performed at 14:45 Evaluation Start: 14:30; Stop: 14:35 Patient Positioning: Seated 70-90 degrees Viewing Planes: LATERAL ONLY Contrast: MBSImP? Standardized Protocol using commercially prepared, standardized Barium viscosities, including: Varibar? THIN LIQUID (40% w/v, <15 cps) , Varibar? NECTAR (40% w/v, <150-450 cps) , Varibar? THIN HONEY (40% w/v, <800-1800 cps) , Varibar? PUDDING (40% w/v, <5553-7400 cps) , 1/2 Shortbread Cookie (1 x1 x.25 ) MBSImP ID: [id number] MBSImP Results: Lip closure for intraoral bolus containment resulted in interlabial escape, without progression to the anterior lip. Tongue control during bolus hold resulted in posterior escape of less than half of the bolus. Bolus preparation and mastication resulted in slow, prolonged chewing/mashing but with complete re-collection. Bolus transport/lingual motion was with slowed tongue motion. Oral residue was a collection on oral structures. Initiation of the pharyngeal swallow occurred when the bolus head was in the pyriform sinuses. Soft palate elevation resulted in no bolus between the soft palate and the pharyngeal wall. Laryngeal elevation demonstrated complete superior movement of the thyroid cartilage with complete approximation of the arytenoids to the epiglottic petiole. Anterior hyoid excursion demonstrated partial anterior movement. Epiglottic movement resulted in partial inversion. Laryngeal vestibular closure was incomplete, with a narrow column of air/contrast noted within the laryngeal vestibule at the height of the swallow. Pharyngeal stripping wave was present and complete. Pharyngeal contraction could not be determined due to logistical reasons not related to physiologic impairment. Pharyngoesophageal segment opening demonstrated partial distension/partial duration, with partial obstruction of bolus flow. Tongue base retraction allowed a narrow column of contrast or air between the retracted tongue base and the posterior pharyngeal wall. Pharyngeal residue was a collection of residue within or on pharyngeal structures. Esophageal clearance in the upright position could not be assessed due to logistical reasons not related to physiologic impairment. Oral Impairment Score: 10 Pharyngeal Impairment Score: 8 (absence of score, component 13) Esophageal Impairment Score: --- (absence of score, component 17) Laryngeal Penetration and Aspiration: Neither penetration nor aspiration was observed in today's study with Cookie, Pudding-thick, Honey-thick. Aspiration was observed in today's study. [place]-thick, Thin Contrast entered the airway, passed below the vocal folds, and no effort were made to eject. Structural Abnormalities Noted: Cervical Hardware contributed to pharyngeal residue ASSESSMENT: This exam was performed by the radiologist and the speech pathologist. Patient was seated upright at 90 degrees for lateral view. He fed himself independently and trialed the following consistencies: -Thin liquid (via individual cup sip) -Honey thick liquid (via individual cup sips) -[place] thick liquid (via individual cup sips & rapid sequential cup sips) -Puree (mixture applesauce w/ barium pudding) -Regular (shortbread cookies coated w/ barium pudding) There was interlabial escape of trace liquid. Reduced tongue control with thinner consistencies, with premature posterior spillage from the oral cavity and trace contrast collecting in the valleculae and pyriforms prior to initiation of the pharyngeal swallow trigger. Mastication was mildly slowed, characterized by piece meal clearing. Posterior lingual motion was slowed with delayed bolus transport. Pharyngeal swallow trigger was also delayed, initiated as the bolus head reached the pyriforms. Post-swallow, there was mild residue coating the tongue and palate, which cleared with multiple dry swallows. No evidence of nasopharyngeal reflux. Complete laryngeal elevation, with partial epiglottic inversion and incomplete laryngeal vestibular closure. There was silent aspiration with thin liquid. A trace amount of contrast entered the airway and passed below the vocal folds with no protective cough or throat clear elicited during or after the episode. There did also appear to be an increase in subglottic aspiration after trials of nectar thick liquid by rapid chain sips. No evidence of aspiration or penetration on honey thick, puree, or regular solid. There was mild residue on the tongue base and the posterior pharyngeal wall and in the valleculae and pyriforms, which partially cleared with multiple dry swallows. Note partial distention through the pharyngoesophageal segment opening (PES), as well as cervical hardware at C5-C6, which appeared to contribute to collection of residue in the pyriforms. The following compensatory strategies have not been used until today's study, but when employed, improved swallowing function: Honey-thick Liquid eliminated Penetration, Aspiration Additional Swallow(s) per Bolus decreased Oral Residue, Pharyngeal Residue Liquid Intake Recommendation: Honey Thick Liquid Intake Strategies: Small Sips, No Straws, Double Swallow Dietary Recommendations: Soft and Bite Size Medication Administration: Whole with Puree Please contact the pharmacy regarding appropriate crushable or liquid drug formulations that are available whenever modified delivery is recommended. Compensatory Strategies Recommended: Sitting Upright (90 deg), Double Swallow, No Straw, Small Bites and Sips, Alternate Liquids/Solids, Rate of Ingestion Change Recommended Treatments: Base of Tongue Exercises, Pharyngeal Resistive Exer, Compens. Strategy Educat. Recommendation for Speech Therapy: Outpatient Speech Therapy, Modified Barium Swallow Study - Outpatient Text Comment: Intake Recommendations: Route: PO Diet Grade: Soft and Bite Sized (IDDSI 6) Liquid Consistencies: Honey Post-Study Functional Oral Intake Scale (FOIS): 5- Total oral intake of multiple consistencies requiring special preparation Patient presents with mild to moderate oropharyngeal dysphagia, characterized by delayed lingual transport, premature posterior spillage, slowed piece meal deglutition pattern, delayed pharyngeal swallow trigger, and compromised airway protection with incomplete laryngeal vestibular closure and partial epiglottic inversion. Contributing factors include cervical hardware which appeared to contribute to pharyngeal collection, underlying neurological condition Parkinson?s, as well as reflux symptoms reported by patient. There was silent aspiration seen with thin liquid, increased after trials of nectar thick liquid. No evidence of aspiration or penetration with honey thick, puree, and regular solids. Mild residue in the oral and pharyngeal cavities partially cleared with multiple dry swallows. Suggested Referrals: The patient might benefit from a referral to: Nutrition Services Indication for Referral: Risk of dehydration on thickened liquids Therapy Recommendations: Recommend SOFT and BITE SIZED foods (IDDSI 6) and HONEY THICK liquids, pills WHOLE or CRUSHED in PUREE as tolerated by the patient. Strategies are recommended as aspiration precautions and to promote clearance: take small sips, one sip at a time, avoid the use of straws, avoid sequential sipping, take one bite at a time, chew food well, after each bite follow with 1-2 dry swallows, alternate with sips of liquid, maintain upright 90 degree position during PO intake and for at least 30 minutes afterwards. Patient is recommended continued speech therapy for the treatment of dysphagia 1x weekly x 6 weeks. The following compensatory strategies and/or therapeutic exercises will be part of the upcoming therapy/management plan: Honey-thick Liquid Additional Swallow(s) per Bolus Machine Tender Goals: ? The patient will tolerate the least restrictive diet with a safe/efficient swallow to maintain adequate nutrition and hydration. ? The patient will demonstrate improved swallowing function via repeat clinical evaluation, videoendoscopy/videofluoroscopy and/or patient self-rating scores. ? The patient and/or family will participate in further education for swallowing goals. Short Term Goals: ? Diet - The patient will tolerate a soft and bite sized diet with honey thick liquids without signs or symptoms of penetration/aspiration 100% of the time. - The patient will participate in therapeutic PO trials with the DIVISIONAL HUMAN RESOURCES DIRECTOR. ? Guidelines - The patient will comply with/recall the following guidelines/strategies 100% of the time with no cuing: Honey-thick Liquid, Bolus Volume Change, Rate of Ingestion Change, Additional Swallow(s) per Bolus, No Straws. ? Independent Home Exercise - The patient will perform 10 repetitions of the Effortful Swallow, Jerry Maneuver, Nicolette Maneuver 2 times a day with 100% accuracy and no cuing as part of a home exercise program. ? Structured Therapy (Trial Pharyngeal Strengthening Exercises) - The patient will demonstrate 100% accuracy and require minimal cuing in structured swallowing therapy with the DIVISIONAL HUMAN RESOURCES DIRECTOR using the following exercises/therapy approaches and therapy assisted devices: Effortful Swallow, Jerry Maneuver, Nicolette Maneuver, . ? Education - The patient will verbalize/demonstrate understanding of the results of this evaluation, the above recommendations, and the swallowing guidelines. Clinician - Supplemental, Miscellaneous Communication: It is important to note MBSS objective studies are snapshots in time and Patient function might vary with factors such as time of day or concomitant medical conditions. For this reason, the final treatment plan for this patient should rest with their medical care team. Additional recommendations should be considered with the totality of the Patient in mind. Thank for the opportunity to participate in the care of this patient. If you have any questions about the content of this report, please contact the [facility]. Education: Education regarding findings from today's study and plans for therapy were provided to Patient only through Verbal Instruction. Understanding was expressed by the Patient only. Frequency/Duration: 1x weekly x 6 weeks Date Range for Service Requested: Timeline to reassess: 3 months Safety Physician Clinician/Clinical Fellow: No Supervisory Statement: N/A Speech Language Pathologist: Floresita Gonzalez M.A., [facility]DIVISIONAL HUMAN RESOURCES DIRECTOR
== END 2025-01-23 14:31 | disposition home or self-care (01) ==
LOC: HO.XRAY 14:30
PROVIDERS: PCP Internal Medicine; Visit Provider Nurse Practitioner Family
DX: R13.12 Dysphagia, oropharyngeal phase (principal); G20.A1 Parkinson's disease without dyskinesia, without mention of fluctuations
CPT/HCPCS: 74230; 92611

== ENCOUNTER → 2025-01-23 14:30 | Outpatient (BNV) | payer MEDICARE, MEDICAID, SELFPAY | PROVIDERS: PCP Internal Medicine; Visit Provider Radiology Diagnostic Ultrasound | DX: R13.10 Dysphagia, unspecified (principal) | CPT/HCPCS: 74230 ==